=== PATIENT | female | born 1955 | race Caucasian/White ===

== ENCOUNTER → 2017-04-26 | Outpatient (CLI) | payer OTHER ==
--- NOTE | 2017-04-26 11:32 | XR ---
EXAMINATION TYPE: XR abdomen 1V DATE OF EXAM: 04/26/2017 CLINICAL DATA: 61-year-old female with follow-up for kidney stones, [facility] COMPARISON: None FINDINGS: Supine imaging limited for assessment of free intraperitoneal air. Mild to moderate scattered stool. Nonobstructive bowel gas pattern. A couple calcifications are present in the left mid abdomen measuring 9 mm and 7 mm. Cholecystectomy clips. Calcification in the left hemipelvis likely phlebolith. IMPRESSION: 2 left-sided renal calculi measuring 9 and 7 mm.
== END ==
LOC: RADXRYALE 10:20
PROVIDERS: ATTEND Urology
DX: N20.0 Calculus of kidney (principal)
CPT/HCPCS: 74000

== ENCOUNTER → 2017-08-31 | Outpatient (CLI) | payer OTHER ==
--- NOTE | 2017-08-31 14:55 | XR ---
EXAMINATION TYPE: XR abdomen 1V DATE OF EXAM: 08/31/2017 HISTORY: Pain, history of lithotripsy Comparison: 04/26/2017 Single KUB is submitted for interpretation. Findings: Right renal calculi: None Visualized. Right ureteral calculi: None Visualized. Left renal calculi: Recently noted calculi lower pole left kidney persist although appear to be smal ler in size. The largest calculus measures 5.5 cm with multiple fragments are noted adjacent to this calculus not smaller in size from prior examination. Left ureteral calculi: None Visualized. Pelvic calcifications: Pelvic phleboliths noted. Bowel gas pattern is unremarkable. No free air. No mass effects. IMPRESSION: 1. Recently noted calculi lower pole left kidney persist although appear to be smaller in size.
== END | disposition home or self-care (01) ==
LOC: RADXRYALE 11:29
PROVIDERS: ATTEND Urology
DX: N20.0 Calculus of kidney (principal)
CPT/HCPCS: 74018

== ENCOUNTER → 2018-04-12 | Outpatient (CLI) | payer OTHER ==
[2018-04-12 11:09] LABS: Calcium 10.1 mg/dL (8.4-10.2); Carbon Dioxide 23 mmol/L (22-30); Chloride 102 mmol/L (98-107); Phosphorus 3.7 mg/dL (2.5-4.5); Uric Acid 5.1 mg/dL (3.7-7.4)
== END | disposition home or self-care (01) ==
LOC: LABWHC1 10:26
PROVIDERS: ATTEND Urology
DX: N20.0 Calculus of kidney (principal)
CPT/HCPCS: 36415; 82310; 82374; 82435; 82565; 83970; 84100; 84550

== ENCOUNTER → 2018-04-14 | Outpatient (CLI) | payer OTHER ==
[2018-04-14 13:08] LABS: Calcium 10.6 mg/dL (8.4-10.2); Carbon Dioxide 23 mmol/L (22-30); Chloride 101 mmol/L (98-107); Phosphorus 4.8 mg/dL (2.5-4.5); Uric Acid 5.7 mg/dL (3.7-7.4)
[2018-04-14 16:51] LABS: Calcium 24 Hour,Urine 464.1 mg/24 hr
[2018-04-14 16:52] LABS: Creatinine 24 Hour,Urine 1622.4 mg/24hr (800.0-1800.0)
== END | disposition home or self-care (01) ==
LOC: LABWHC1 11:35
PROVIDERS: ATTEND Urology
DX: N20.0 Calculus of kidney (principal)
CPT/HCPCS: 36415; 81003; 81050; 82310; 82340; 82374; 82435; 82565; 82570; 83970; 84100; 84300; 84550; 84560

== ENCOUNTER → 2018-04-25 | Outpatient (CLI) | payer OTHER ==
--- NOTE | 2018-04-25 11:27 | XR ---
EXAMINATION TYPE: XR abdomen 1V DATE OF EXAM: 04/25/2018 COMPARISON: NONE HISTORY: Pain TECHNIQUE: Single supine KUB image of the abdomen is obtained FINDINGS: Small bowel demonstrates no evidence for dilatation or air fluid levels. Gas and fecal material is seen in non-distended colon. No convincing evidence for pneumoperitoneum. There is evidence of left-sided nephrolithiasis with 2 calculi seen lower pole of the left kidney zully suring 5.6 mm and 4.7 mm respectively. Suspect additional upper pole left renal calculi although over lying bowel content limits evaluation. Previously noted right-sided renal calculus is not redemonstra luis with certainty at this time. The lung bases are clear. The osseous structures are intact. IMPRESSION: 1. Nephrolithiasis as discussed.
== END | disposition home or self-care (01) ==
LOC: RADXRYALE 11:08
PROVIDERS: ATTEND Internal Medicine
DX: N20.0 Calculus of kidney (principal)
CPT/HCPCS: 74018

== ENCOUNTER → 2018-07-26 | Outpatient (CLI) | payer OTHER ==
[2018-07-26 16:15] LABS: Calcium 9.8 mg/dL (8.7-10.3); Phosphorus 3.7 mg/dL (2.4-5.1); Uric Acid 4.9 mg/dL (2.9-7.7)
== END | disposition home or self-care (01) ==
LOC: LABWHC1 09:36
PROVIDERS: ATTEND Urology
DX: N20.0 Calculus of kidney (principal)
CPT/HCPCS: 36415; 82310; 82374; 82435; 82565; 83970; 84100; 84550

== ENCOUNTER → 2018-07-28 | Outpatient (CLI) | payer OTHER ==
[2018-07-28 16:59] LABS: Calcium 9.9 mg/dL (8.7-10.3); Carbon Dioxide 21.2 mmol/L (21.6-31.8); Phosphorus 4.3 mg/dL (2.4-5.1); Uric Acid 5.4 mg/dL (2.9-7.7)
== END | disposition home or self-care (01) ==
LOC: LABWHC1 09:23
PROVIDERS: ATTEND Urology
DX: N20.0 Calculus of kidney (principal)
CPT/HCPCS: 36415; 82310; 82374; 82435; 82565; 83970; 84100; 84550

== ENCOUNTER → 2018-12-21 | Outpatient (CLI) | payer OTHER ==
--- NOTE | 2018-12-21 11:56 | XR ---
EXAMINATION TYPE: XR KUB DATE OF EXAM: 12/21/2018 11:18 AM CLINICAL HISTORY: Nephrolithiasis. TECHNIQUE: Single supine KUB image of the abdomen is obtained. COMPARISON: 11/15/2013 FINDINGS: In addition to the previously seen 7 mm calculus there is an adjacent 5 mm calculus overlyi ng the left lower pole. The previously measured 7 mm right renal calculus is not clearly visualized o n today's exam of overlying bowel gas slightly obscures the right kidney. No new calculi along the co urses of the ureters. Small phleboliths are seen within the left pelvis. Mild degenerative changes of the lumbosacral junction. No dilated bowel. Cholecystectomy clips are seen. Lung bases are well aera luis. IMPRESSION: Persistent 7 mm left lower pole renal calculus and additional new 5 mm left lower pole renal calculus . The previously seen right renal calculus may have passed in the interim or may be obscured by overl shaheen bowel.
== END ==
LOC: RADXRYALE 11:02
PROVIDERS: ATTEND Urology
DX: N20.0 Calculus of kidney (principal)
CPT/HCPCS: 74018

== ENCOUNTER → 2019-05-16 | Outpatient (CLI) | payer OTHER ==
[2019-05-16 19:41] LABS: African American GFR (CKD) 90.9 (60.0-200.0)
[2019-05-16 19:58] LABS: Folate, Serum >24.0 ng/mL
== END ==
LOC: LABWHC1 11:06
PROVIDERS: ATTEND Psychiatry & Neurology Neurology
DX: R25.1 Tremor, unspecified (principal)
CPT/HCPCS: 36415; 82565; 82607; 82746; 84520

== ENCOUNTER → 2019-05-22 | Outpatient (CLI) | payer OTHER ==
--- NOTE | 2019-05-22 11:19 | MR ---
EXAMINATION TYPE: MR brain wo/w con DATE OF EXAM: 05/22/2019 COMPARISON: None HISTORY: Malignant neoplasm of the brain TECHNIQUE: Multiplanar, multisequence images of the brain and brainstem is performed without and with IV contras t, utilizing 12 mL intravenous Gadavist . FINDINGS: Diffusion weighted images demonstrate no evidence of a recent infarct or other diffusion ab normality. The ventricular system and cisternal spaces are normal in size and appearance. The brain volume is age appropriate. Midline structures demonstrate normal morphology. The craniocervical junction appears within normal limits. Post contrast images demonstrate a 5 mm extra-axial area of enhancement along the superior r ight parietal lobe parasagittally to the right. . The dural venous sinuses appear patent. Changes of mild chronic sinusitis. No orbital flattening. There are a few scattered areas of focal abnormal signal the white matter estimated 5. All measure le ss than 5 mm. IMPRESSION: 1. There is a 5 mm extra-axial enhancing mass superior to the right parietal lobe. This results in ve ry minimal mass effect upon the adjacent cortex. Differential diagnosis would include a meningioma. N o prior studies are available to assess whether the lesion is changed in size. Small metastatic depos it is not entirely excluded. Recommend follow-up 3-6 month study to assess for stability in size. 2. Minimal nonspecific white matter changes most typical of remote microvascular ischemia.
== END ==
LOC: RADMRIMAIN 09:31
PROVIDERS: ATTEND Psychiatry & Neurology Neurology
DX: C71.9 Malignant neoplasm of brain, unspecified (principal)
CPT/HCPCS: 70553; A9585

== ENCOUNTER → 2019-06-30 | Outpatient (CLI) | payer OTHER ==
--- NOTE | 2019-06-30 13:19 | XR ---
EXAMINATION TYPE: XR KUB DATE OF EXAM: 06/30/2019 HISTORY: Pain Comparison: 12/21/2018 Single KUB is submitted for interpretation. Findings: Right renal calculi: None Visualized. Right ureteral calculi: None Visualized. Left renal calculi: Left renal calculi noted measuring 5.1 and 6.7 mm respectively versus 5.2 and 6. 9 mm previously. Left ureteral calculi: None Visualized. Pelvic calcifications: None Visualized. Bowel gas pattern is unremarkable. No free air. No mass effects. IMPRESSION: 1. Essentially stable left-sided renal calculi.
== END | disposition home or self-care (01) ==
LOC: RADXRYALE 10:37
PROVIDERS: ATTEND Urology
DX: N20.0 Calculus of kidney (principal)
CPT/HCPCS: 74018

== ENCOUNTER → 2020-01-08 | Outpatient (CLI) | payer OTHER ==
--- NOTE | 2020-01-08 09:52 | XR ---
EXAMINATION TYPE: XR KUB DATE OF EXAM: 01/08/2020 Comparison: 06/30/2019 Clinical History: 64-year-old female N200 KIDNEY STONE Findings: Left-sided renal calculus measures 1.5 x 0.9 cm. Cholecystectomy clips. Nonobstructive bowel gas kayli christiana. Moderate stool burden. Impression: Redemonstrated left-sided renal calculus measuring 1.5 x 0.9 cm. Moderate stool burden.
== END | disposition home or self-care (01) ==
LOC: RADXRYALE 08:53
PROVIDERS: ATTEND Urology
DX: N20.0 Calculus of kidney (principal)
CPT/HCPCS: 74018

== ENCOUNTER → 2020-04-01 | Outpatient (CLI) | payer OTHER ==
--- NOTE | 2020-04-01 22:52 | MR ---
EXAMINATION TYPE: MR brain wo/w con DATE OF EXAM: 04/01/2020 COMPARISON: 05/22/2019 HISTORY: Meningioma, previous abnormal. CONTRAST: Performed utilizing 12 mL intravenous Gadavist gadolinium contrast. TECHNIQUE: Multiplanar, multiecho imaging on a 3.0 Karla magnet is performed through the brain. Stud y is performed within 24 hours of arrival to the hospital. The craniovertebral junction is normal. The pituitary is normal. There is a small enhancing area along the superior vertex. This is extra-axial and measures 0.9-0.9 c m. Series 603 image 17. This was present previously and can be compatible with the small meningioma. This is stable in size. Monitoring is recommended. Follow-up exam in 3-6 months is recommended. Diffusion-weighted imaging is performed. No abnormal hyperintensity is present to suggest an acute i ntracranial infarct or acute ischemic change. There are some scattered subcortical white matter changes predominantly within the right centrum semi ovale frontal and parietal lobes. Largest on right measures 0.5 cm. Series 501 image 20. White matter changes appear stable over the interval. Ventricles and sulci are appropriate for the patient age. There is some increased signal on T2-weighted sequences through the optic nerve region. Clinical noe elation for papilledema is recommended. IMPRESSIONS: 1. Stable enhancing meningioma right medial vertex. 2. Stable subcortical punctate white matter changes, likely on the basis of chronic hypervascular isc hemic change. 3. Fluid surrounding the optic nerves. Correlate for papilledema.
== END | disposition home or self-care (01) ==
LOC: RADMRIMAIN 09:24
PROVIDERS: ATTEND Psychiatry & Neurology Neurology
DX: D32.0 Benign neoplasm of cerebral meninges (principal)
CPT/HCPCS: 70553; A9585

== ENCOUNTER → 2020-12-24 | Outpatient (CLI) | payer OTHER ==
--- NOTE | 2020-12-24 14:02 | XR ---
EXAMINATION TYPE: XR KUB DATE OF EXAM: 12/24/2020 8:50 AM CLINICAL HISTORY: Kidney stone TECHNIQUE: Single supine KUB image of the abdomen is obtained. COMPARISON: 01/08/2020. FINDINGS: Cholecystectomy clips. Scattered stool in gas obscure visualization of the renal contours, right greater than left. There is a left lower pole renal calculus measuring 1.3 cm, similar to prior exam. Probable left-sided pelvic phleboliths. Stool and gas are seen to the level of the rectum. No definite evidence of ureteral calculi. Degenerative changes of the lumbar spine and hips. IMPRESSION: 1. Stable left lower pole renal calculus measuring 1.3 cm, similar to prior exam. 2. Cholecystectomy. 3. Large amount of stool and gas obscures visualization of the right kidney and pelvis.
== END | disposition home or self-care (01) ==
LOC: RADXRYALE 08:41
PROVIDERS: ATTEND Urology
DX: N20.0 Calculus of kidney (principal); K56.41 Fecal impaction; Z90.49 Acquired absence of other specified parts of digestive tract
CPT/HCPCS: 74018

== ENCOUNTER → 2021-04-06 | Outpatient (CLI) | payer OTHER, MEDICARE ==
--- NOTE | 2021-04-06 16:02 | MR ---
EXAMINATION TYPE: MR brain wo/w con DATE OF EXAM: 04/06/2021 COMPARISON: 04/01/2020 HISTORY: Menegioma, follow up CONTRAST: Standard multiplanar, multisequence MRI departmental protocol utilizing 12ml mL intravenous Gadavist gadolinium contrast. There is cerebral cortical atrophy. There is no mass effect nor midline shift. There is no sign of in tracranial hemorrhage. There are a few white matter high signal foci in the right cerebral hemisphere that measure up to 6 mm. Total number is approximately 5. These are seen in the frontal temporal and parietal lobes. The brainstem is intact. Cerebellum is intact. Sella turcica is intact. Corpus callo sum is intact. There is 9 mm rounded enhancing focus at the right posterior frontal lobe convexity ne ar the midline. This is extra-axial and consistent with a small meningioma. The size is not changed c ompared to old exam. The optic chiasm appears normal. Pituitary stalk is in the midline. There is no evidence of orbital mass. IMPRESSION: Extra-axial enhancing focus in the right posterior frontal lobe convexity consistent with meningioma and not changed compared to previous exam. Mild atrophy.
== END | disposition home or self-care (01) ==
LOC: RADMRIMAIN 08:53
PROVIDERS: ATTEND Psychiatry & Neurology Neurology
DX: G31.9 Degenerative disease of nervous system, unspecified (principal)
CPT/HCPCS: 70553; A9585

== ENCOUNTER → 2021-09-05 | Outpatient (CLI) | payer OTHER ==
--- NOTE | 2021-09-07 17:40 | CT ---
EXAMINATION TYPE: CT abdomen pelvis wo con DATE OF EXAM: 09/05/2021 COMPARISON: 12/19/2013 HISTORY: 66-year-old female N2 0.0, bilateral renal stones CT DLP: 1126 mGycm. Automated exposure control for dose reduction was used. TECHNIQUE: Contiguous axial scanning of the abdomen and pelvis without IV contrast. Coronal and sagit zak reconstructions performed. FINDINGS: Heart normal size without pericardial effusion. Small to moderate-sized hiatal hernia. Some minimal s trandy subpleural atelectasis. No pleural effusion. Liver mildly enlarged at 18.9 cm versus 20.5 cm, previously. Cholecystectomy clips. Mild diffuse thickening of the adrenal glands without discrete nodularity. Spleen with splenule anterior to the tail of the pancreas redemonstrated. Noncontrast appearance of t he pancreas shows no gross abnormality. 4 nonobstructive right renal calculi measuring up to 4 mm. 5 nonobstructive left renal calculi, large st measuring 9 mm. Mild bilateral perinephric edema could represent senescent change of chronic kidne y disease. No hydronephrosis. No dilated small bowel, free fluid, or free air. No mesenteric or retroperitoneal lymphadenopathy. Mild stool burden. Generalized colonic diverticulosis, greatest in the sigmoid colon. No pericolic in flammatory change. Bladder partially distended. Some possible soft tissue thickening along the anterior aspect of the bl adder, axial image 133 and sagittal image 53. Small pelvic phleboliths. Uterus surgically absent. Questionable visualization of the right ovary. Le ft ovary not clearly delineated from adjacent bowel loops. No abnormal fluid collection in the pelvis or pelvic lymphadenopathy seen. Bones: Degenerative changes pubic symphysis. [id number] degenerative change at both hips. Hyper trophic facet arthropathy mid to lower lumbar spine with grade 1 anterolisthesis L4-L5. Grade 1 retro listhesis L1-L2. IMPRESSION: 1. Bilateral nephrolithiasis measuring up to 4 mm on the right and 9 mm on the left. No hydronephros is. 2. Some possible soft tissue thickening along the anterior wall of the bladder (axial image 133 and sagittal image 53). Findings may be artifact from bony pelvic structures. A urothelial lesion is not excluded at this time. Correlate with urinalysis and urine cytology. Direct visualization as clinical ly indicated. 3. Colonic diverticulosis greatest in the sigmoid colon. No evidence for acute diverticulitis. 4. Small to moderate-sized hiatal hernia.
== END | disposition home or self-care (01) ==
LOC: RADCTMAIN 13:26
PROVIDERS: ATTEND Urology
DX: N20.0 Calculus of kidney (principal); K57.30 Diverticulosis of large intestine without perforation or abscess without bleeding; K44.9 Diaphragmatic hernia without obstruction or gangrene
CPT/HCPCS: 74176

== ENCOUNTER → 2021-09-13 | Outpatient (CLI) | payer OTHER ==
[2021-09-14 13:09] LABS: Coronavirus SARS CoV-2 Not Detected (Not Detected)
== END | disposition home or self-care (01) ==
LOC: LABWHC1 08:16
PROVIDERS: ATTEND Urology
DX: Z20.822 Contact with and (suspected) exposure to COVID-19 (principal)
CPT/HCPCS: U0003; C9803; U0005

== ENCOUNTER → 2021-10-23 | Outpatient (CLI) | payer OTHER ==
--- NOTE | 2021-10-23 09:49 | XR ---
EXAMINATION TYPE: XR KUB DATE OF EXAM: 10/23/2021 HISTORY: S/P LT ESWL Comparison: 12/24/2020 Single KUB is submitted for interpretation. Findings: Right renal calculi: None Visualized. Right ureteral calculi: None Visualized. Left renal calculi: Overlying bowel content limits evaluation of the left kidney. Previously noted c alculus lower pole left kidney is poorly visualized. No definite calculi along the course of the left ureter. Left ureteral calculi: None Visualized. Pelvic calcifications: Stable phleboliths. Bowel gas pattern is unremarkable. No free air. No mass effects. IMPRESSION: 1. Overlying bowel content limits evaluation of the left kidney. Previously noted calculus lower pole left kidney is poorly visualized. No definite calculi along the course of the left ureter.
== END | disposition home or self-care (01) ==
LOC: RADXRYALE 09:19
PROVIDERS: ATTEND Urology
DX: N20.0 Calculus of kidney (principal); Z87.442 Personal history of urinary calculi
CPT/HCPCS: 74018

== ENCOUNTER 2021-11-17 16:46 | Emergency (ER) | payer OTHER, MEDICARE ==
[2021-11-17 17:11] VITALS: BP 168/75; PULSE 93; RESP 16; TEMP 98.2
[2021-11-17] MEDS ORDERED: DIPH,PERTUS(ACELL)TETVAC-LF 0.5 ML VIAL IM ONE (17:20)
--- NOTE | 2021-11-17 17:22 | ED ---
General Adult HPI - General Chief complaint: Fall Stated complaint: Fall, Right arm injury Time Seen by Provider: 11/17/21 17:13 Source: patient, RN notes reviewed Mode of arrival: ambulatory Limitations: no limitations - History of Present Illness Initial comments: Patient is a pleasant 66-year-old female presenting to the emergency Department with right arm pain following a fall. Incident occurred earlier today. Patient was not and attention and tripped over a parking block. Patient caught herself with her right outstretched hand. Patient has discomfort near the right elbow. Patient did have some abrasions to the right hand. Unclear last tetanus immunization. No head injury or loss of consciousness. No neck or back pain. No chest pain or dyspnea. No abdominal pain. No other area of injury or concern. Patient refuses any pain medication. - Related Data Home Medications Medication Instructions Recorded Confirmed Aspirin EC [Ecotrin Low Dose] 81 mg PO DAILY 11/17/21 11/17/21 Atorvastatin [Lipitor] 80 mg PO HS 11/17/21 11/17/21 Cholecalciferol [Vitamin D3 (25 25 mcg PO DAILY 11/17/21 11/17/21 Mcg = 1000 Iu)] Empagliflozin [Jardiance] 25 mg PO DAILY 11/17/21 11/17/21 Isosorbide Mononitrate ER [Imdur] 30 mg PO DAILY 11/17/21 11/17/21 Meclizine [Antivert] 25 mg PO DAILY PRN 11/17/21 11/17/21 Metoprolol Tartrate [Lopressor] 25 mg PO BID 11/17/21 11/17/21 Naproxen Sodium [Aleve] 440 mg PO BID 11/17/21 11/17/21 Potassium Citrate [Urocit-K] 10 meq PO BID 11/17/21 11/17/21 hydroCHLOROthiazide 50 mg PO DAILY 11/17/21 11/17/21 lisinopriL [Zestril] 20 mg PO BID 11/17/21 11/17/21 sitaGLIPtin PHOS/metFORMIN HCL 1 tab PO BID 11/17/21 11/17/21 [Janumet 50-1,000 mg Tablet] Allergies Allergy/AdvReac Type Severity Reaction Status Date / Time sulfamethoxazole AdvReac Abdominal Verified 11/17/21 18:41 [From Bactrim] Pain trimethoprim [From Bactrim] AdvReac Abdominal Verified 11/17/21 18:41 Pain Review of Systems ROS Statement: Those systems with pertinent positive or pertinent negative responses have been documented in the HPI. ROS Other: All systems not noted in ROS Statement are negative. Constitutional: Denies: fever Eyes: Denies: eye pain ENT: Denies: ear pain Respiratory: Denies: cough Cardiovascular: Denies: chest pain Endocrine: Denies: fatigue Gastrointestinal: Denies: abdominal pain Genitourinary: Denies: dysuria Musculoskeletal: Reports: as per HPI. Denies: back pain Skin: Denies: lesions Neurological: Denies: weakness Past Medical History Past Medical History: Diabetes Mellitus, Hyperlipidemia, Hypertension History of Any Multi-Drug Resistant Organisms: None Reported Past Surgical History: Cholecystectomy, Hysterectomy Past Psychological History: No Psychological Hx Reported Smoking Status: Never smoker Past Alcohol Use History: None Reported Past Drug Use History: None Reported General Exam Limitations: no limitations General appearance: alert, in no apparent distress Head exam: Present: atraumatic Eye exam: Present: normal appearance Neck exam: Present: normal inspection. Absent: tenderness Respiratory exam: Present: normal lung sounds bilaterally Cardiovascular Exam: Present: regular rate, normal rhythm Expanded Peripheral pulses: 2+: Radial (R) GI/Abdominal exam: Present: soft. Absent: tenderness Extremities exam: Present: tenderness (Tenderness right elbow region. No other area of bony tenderness.) Neurological exam: Present: alert. Absent: motor sensory deficit Psychiatric exam: Present: normal affect, normal mood Skin exam: Present: other (Mild abrasions right proximal palm) Course Vital Signs 11/17/21 17:08 Temperature 98.2 F Pulse Rate 93 Respiratory 16 Rate Blood Pressure 168/75 O2 Sat by Pulse 97 Oximetry Procedures - Orthopedic Splinting/Casting Injury #1 Side: right Upper Extremity Injury Location: long arm Upper Extremity Immobilizer: posterior splint Medical Decision Making - Medical Decision Making Patient reevaluated and updated. Patient states she does see Dr. Harden and will follow-up with him. - Radiology Data Radiology results: image reviewed (X-ray right elbow shows no fracture. I do have some concern for a positive sail sign) Disposition Clinical Impression: Fall, Arm injury Disposition: HOME SELF-CARE Condition: Stable Instructions (If sedation given, give patient instructions): Arm Fracture in Adults (ED), Arm Pain (ED) Additional Instructions: Ice to affected area. Please follow-up with your orthopedic doctor in the next couple days for recheck. Use sling as needed. Return for increased pain, swelling, worsening or changing symptoms or other concerns. Is patient prescribed a controlled substance at d/c from ED?: No Referrals: Maral Edwards MD [Primary Care Provider] - 1-2 days Gaurav Deleon MD [STAFF PHYSICIAN] - 1-2 days Endy Hart MD [Medical Doctor] - 1-2 days Time of Disposition: 18:58
--- NOTE | 2021-11-17 18:19 | XR ---
EXAMINATION TYPE: XR elbow complete RT DATE OF EXAM: 11/17/2021 COMPARISON: NONE HISTORY: Elbow pain TECHNIQUE: 3 views FINDINGS: There is some spurring on the olecranon process of the ulna. I see no fracture nor dislocat ion. Elbow joint spaces are normal. IMPRESSION: Negative right elbow exam. No fracture.
== END 2021-11-17 19:05 | disposition home or self-care (01) ==
LOC: EC 16:46
DX: S69.91XA Unspecified injury of right wrist, hand and finger(s), initial encounter (principal); E11.9 Type 2 diabetes mellitus without complications; I10 Essential (primary) hypertension; Z88.2 Allergy status to sulfonamides; Z88.8 Allergy status to other drugs, medicaments and biological substances; W19.XXXA Unspecified fall, initial encounter
CPT/HCPCS: 29105; 90471; 90715; 99284

== ENCOUNTER → 2022-01-07 | Outpatient (CLI) | payer OTHER, MEDICARE ==
--- NOTE | 2022-01-07 15:05 | XR ---
EXAMINATION TYPE: XR ribs bilat w pa chest xray DATE OF EXAM: 01/07/2022 COMPARISON: NONE HISTORY: Pain TECHNIQUE: 5 views of the right 5 views of the left ribs are submitted FINDINGS: AC joint arthropathy incidentally noted. Mild diffuse osteopenia. Chronic appearing deformi ty of the anterior lateral margin of the right fourth rib. Surgical clips in the gallbladder fossa. S urgical clips overlying the left chest. Lungs are clear. No pleural effusion or pneumothorax. Hypertr ophic and degenerative changes spine. No acute displaced rib fracture. Vascular calcifications in the abdomen. IMPRESSION: 1. No acute displaced rib fracture. If symptoms persist consider CT scan of the chest.
== END | disposition home or self-care (01) ==
LOC: RADXRYALE 14:41
PROVIDERS: ATTEND Internal Medicine
DX: R07.81 Pleurodynia (principal)
CPT/HCPCS: 71111

== ENCOUNTER → 2022-06-29 | Outpatient (CLI) | payer OTHER ==
--- NOTE | 2022-06-29 12:39 | BD ---
EXAMINATION TYPE: Axial Bone Density DATE OF EXAM: 06/29/2022 COMPARISON: NONE CLINICAL HISTORY: 67 years year old Female. ICD-10 CODE: N95.8 OTHER SPECIFIED MENOPAUSAL AND PERIME NOPAUSAL Height: 5 FT 5 1/2 IN Weight: 258 FRAX RISK QUESTIONS: Alcohol (3 or more units per day): NO Family History (Parent hip fracture): NO Glucocorticoids (More than 3mos): NO (Ex: prednisone, prednisolone, methylprednisolone, dexamethasone, and hydrocortisone). History of Fracture in Adulthood: YES Secondary Osteoporosis: 1. Type 1 Diabetes: NO 2. Hyperthyroidism: NO 3. Menopause before 45: NO 4. Malnutrition: NO 5. Chronic liver disease: NO Rheumatoid Arthritis: NO Current Tobacco Use: NO RISK FACTORS HISTORY OF: Surgery to Spine/Hip(right/left)/Wrist (right/left): NO Family History of Osteoporosis: YES Active: SOMEWHAT Diet low in dairy products/other sources of calcium: NO Postmenopausal woman: YES Take estrogen and/or progesterone medications: NO Lost more than 2 inches in height since high school: YES Frequent falls: NO Poor Health: FAIR Hyperparathyroidism: NO Adrenal Insufficiency: STONES MEDICATIONS: Additional Medications: JARDIANCE,METFORMIN,RYBELSUS, METOPROLOL, LISINOPRIL, ATORVASTATAN, ISOSORBID E MONONITRATE, HYDROCHLORATE, POTASSIUM, MECLIZINE, OMEPRAZOLE, MULTI VIT Additional History: EXAM MEASUREMENTS: Bone mineral densitometry was performed using the [employer] System. Bone mineral density as measured about the Lumbar spine is: ----- L1-L4(G/cm2 1.433): T Score Values are as follows: ----- L1: 1.5 ----- L2: 2.6 ----- L3: 1.6 ----- L4: 2.6 ----- L1-L4: 2.1 BASELINE Bone mineral density about the R hip (g/cm2): 1.023 Bone mineral density about the L hip (g/cm2): 1.137 T Score values are as follows: -----R Neck: -0.1 -----L Neck: 0.7 -----R Total: -0.2 -----L Total: 0.1 BASELINE FRAX%s: The graph provided illustrates a 4.4 % chance for a major osteoporotic fx and a 0.3 % chance for the hips probability for fx in 10 years time. IMPRESSION: Normal (Values between +1 and -1 indicate normal bone mass). Consider repeating this study in 5 year s or sooner if there is some new clinical indication. NOTE: T-SCORE=SD OF THE YOUNG ADULT MEAN.
== END | disposition home or self-care (01) ==
LOC: RADBDWWP 09:11
PROVIDERS: ATTEND Internal Medicine
DX: N95.8 Other specified menopausal and perimenopausal disorders (principal)
CPT/HCPCS: 77080

== ENCOUNTER → 2023-01-18 | Outpatient (CLI) | payer OTHER, MEDICARE ==
--- NOTE | 2023-01-19 11:39 | MM ---
Reason for Exam: Screening (asymptomatic). Last screening mammogram was performed 12 month(s) ago. Patient History: Menarche at age 11. First Full-Term at age 27. Hysterectomy at age 45. Postmenopausal. Breast cancer, left. 2009, Lumpectomy on the Left side. 2009, Radiation Therapy on the left side. Prior Study Comparison: 10/11/2019 Bilateral Diagnostic Mammogram, [facility]. 11/07/2020 Bilateral Diagnostic Mammogram, [facility]. 01/07/2022 Bilateral Diagnostic Mammogram, [facility]. Tissue Density: The breast tissue is extremely dense which could obscure a lesion on mammography. Findings: Analyzed By CAD. No new suspicious mass within either breast. Posttreatment changes of the left breast. Benign calcifications within both breasts. New linear regional calcification within the upper outer left breast which may represent secretory calcifications. Overall Assessment: Incomplete: need additional imaging evaluation, BI-RAD 0 Management: Diagnostic Mammogram of the left breast. A clinical breast exam by your physician is recommended on an annual basis and results should be correlated with mammographic findings. [facility] will attempt to contact patient to return for supplemental views and ultrasound if indicated. Electronically signed and approved by: Kan Alves D.O.
== END | disposition home or self-care (01) ==
LOC: RADMAMWWP 08:10
PROVIDERS: ATTEND Internal Medicine
DX: Z12.31 Encounter for screening mammogram for malignant neoplasm of breast (principal); Z78.0 Asymptomatic menopausal state
CPT/HCPCS: 77063; 77067

== ENCOUNTER → 2023-01-21 | Outpatient (CLI) | payer OTHER ==
--- NOTE | 2023-01-21 09:21 | MM ---
Reason for Exam: Additional evaluation requested from abnormal screening. Last screening mammogram was performed less than 1 month ago. Patient History: Menarche at age 11. First Full-Term at age 27. Hysterectomy at age 45. Postmenopausal. Breast cancer, left, age 55. 2010, Lumpectomy on the Left side. 2009, Radiation Therapy on the left side. Prior Study Comparison: 10/11/2019 Bilateral Diagnostic Mammogram, [facility]. 11/07/2020 Bilateral Diagnostic Mammogram, [facility]. 01/07/2022 Bilateral Diagnostic Mammogram, [facility]. 01/18/2023 Bilateral MG 3D screening mammo w/cad, [facility]. Tissue Density: Left: The breast tissue is extremely dense which could obscure a lesion on mammography. Findings: Analyzed By CAD. There is a new large area of indeterminate microcalcifications upper outer left breast. Calcifications span approximately 7.5 x 9.1 x 3.4 cm. Stereotactic core biopsy is recommended at multiple sites. Overall Assessment: Suspicious, BI-RAD 4 Management: Stereotactic Core Biopsy of the left breast. . Results were given to the patient verbally at the time of exam. Patient should continue monthly self-breast exams. A clinical breast exam by your physician is recommended on an annual basis. This exam should not preclude additional follow-up of suspicious palpable abnormalities. Note on Cherie scores and lifetime risk: 1. A Cherie score greater than 3% is considered moderate risk. If this is the case, consider specialist referral to assess eligibility for a risk reducing agent. 2. If overall lifetime risk for the development of breast cancer is 20% or higher, the patient may qualify for future screening with alternating mammogram and breast MRI. Electronically signed and approved by: Joe Louise M.D. Radiologis
== END | disposition home or self-care (01) ==
LOC: RADMAMWWP 08:10
PROVIDERS: ATTEND Internal Medicine
DX: R92.8 Other abnormal and inconclusive findings on diagnostic imaging of breast (principal); Z78.0 Asymptomatic menopausal state
CPT/HCPCS: 77061; 77065

== ENCOUNTER → 2023-03-19 | Outpatient (CLI) | payer OTHER ==
[2023-03-19 11:58] VITALS: BP 132/84; PULSE 107; RESP 16; TEMP 98.2
--- NOTE | 2023-03-19 12:24 | P.GSHP ---
History of Present Illness H&P Date: 03/19/23 Chief Complaint: DCIS left breast Pablo is a 67 year old white female seen in consultation for Dr. Edwards regarding a biopsy proven left breast DCIS. She underwent a bilateral mammogram on 01-18-23. This showed a large area 10 by 4 cm in carlos left breast in the [facility] where biopsy was done and + for DCIS, no lesions of concern in the right breast. A MRI done on 02-25-23 confirmed the findings of diffuse nonmass enhancement int eh left bresat without definitive correlation of location with the calcification on mammogram. No lesions of concern noted in the right breast. Patient does not feel any lumps masses or nodules of concern in either breast. Patient has not had any recent trauma or infection in either breast. Of significance is the fact that the patient underwent a left breast lumpectomy in 2009 at [facility]. It was done by DR. Apple. He underwent [address] Todd. She did not have any chemo or hormonal therapy. She was told it was stage 0. She is uncertain as to the size. Caffiene: 1/2 cups coffee/day 1 pepsi/day nicotine: none chocolate:occasional BCP: 3 months hormones: none Family history: sister: from colon cancer father: thyroid cancer Hormonal history: Menarche: 10 , breat fed: no, age at first : 27 menopause: total hysterectomy in her 50's heavy bleeding Surgical history: Total abdominal hysterectomy Cholecystectomy Colonoscopy Left breast lumpectomy and sentinel node biopsy Medical History: daibetic HTN high cholesterol Bilateral knee/ymxr-tf-drck takes a baby aspirin Social history: Nicotine: Negative Alcohol: Negative Drugs:none - Constitutional Constitutional: Reports sweats - EENT Eyes: denies blurred vision, denies pain Ears: deny: decreased hearing, tinnitus Ears, nose, mouth and throat: Denies headache, Denies sore throat - Breasts Breasts: bilateral: as per HPI - Cardiovascular Cardiovascular: Denies chest pain, Denies shortness of breath - Respiratory Respiratory: Denies cough, Denies 7 - Gastrointestinal Gastrointestinal: Denies abdominal pain, Denies diarrhea, Denies nausea, Denies vomiting - Genitourinary (Female) Genitourinary: Reports kidney stones, Denies dysuria, Denies hematuria - Menstruation Menstruation: Reports post hysterectomy - Musculoskeletal Musculoskeletal: Reports as per HPI, Denies myalgias - Integumentary Integumentary: Denies pruritus, Denies rash - Neurological Neurological: Denies numbness, Denies weakness - Psychiatric Psychiatric: Denies anxiety, Denies depression - Endocrine Endocrine: Denies fatigue, Denies weight change - Hematologic/Lymphatic Comment: none - Allergic/Immunologic Allergic/Immunologic: Reports seasonal allergies Past Medical History Past Medical History: Diabetes Mellitus, Hyperlipidemia, Hypertension History of Any Multi-Drug Resistant Organisms: None Reported Past Surgical History: Cholecystectomy, Hysterectomy Past Anesthesia/Blood Transfusion Reactions: No Reported Reaction Past Psychological History: No Psychological Hx Reported Smoking Status: Never smoker Past Alcohol Use History: None Reported Past Drug Use History: None Reported Medications and Allergies Home Medications Medication Instructions Recorded Confirmed Type Aspirin EC [Ecotrin Low Dose] 81 mg PO DAILY 11/17/21 03/19/23 History Atorvastatin [Lipitor] 80 mg PO HS 11/17/21 03/19/23 History Cholecalciferol [Vitamin D3 (25 25 mcg PO DAILY 11/17/21 03/19/23 History Mcg = 1000 Iu)] Empagliflozin [Jardiance] 25 mg PO DAILY 11/17/21 03/19/23 History Isosorbide Mononitrate ER [Imdur] 30 mg PO DAILY 11/17/21 03/19/23 History Meclizine [Antivert] 25 mg PO DAILY PRN 11/17/21 03/19/23 History Metoprolol Tartrate [Lopressor] 25 mg PO BID 11/17/21 03/19/23 History Naproxen Sodium [Aleve] 440 mg PO BID 11/17/21 03/19/23 History Potassium Citrate [Urocit-K] 10 meq PO BID 11/17/21 03/19/23 History hydroCHLOROthiazide 50 mg PO DAILY 11/17/21 03/19/23 History lisinopriL [Zestril] 20 mg PO BID 11/17/21 03/19/23 History sitaGLIPtin PHOS/metFORMIN HCL 1 tab PO BID 11/17/21 03/19/23 History [Janumet 50-1,000 mg Tablet] Semaglutide [Rybelsus] 14 mg PO DAILY 03/19/23 03/19/23 History Allergies Allergy/AdvReac Type Severity Reaction Status Date / Time sulfamethoxazole AdvReac Abdominal Verified 03/19/23 11:51 [From Bactrim] Pain trimethoprim [From Bactrim] AdvReac Abdominal Verified 03/19/23 11:51 Pain Surgical - Exam Vital Signs Temp Pulse Resp BP Pulse Ox 98.2 F 107 H 16 132/84 96 03/19/23 11:53 03/19/23 11:53 03/19/23 11:53 03/19/23 11:53 03/19/23 11:53 - General no distress - Eyes normal ocular movement - ENT no hearing loss - Neck trachea midline - Respiratory normal respiratory effort - Cardiovascular Heart Sounds: normal: S1, S2 - Abdomen Abdomen: soft, non tender, no guarding, no rigid, no rebound - Integumentary normal turgor - Neurologic no disoriented, no combative - Musculoskeletal normal gait - Psychiatric oriented to time, oriented to person, oriented to place, speech is normal, memory intact Breast Exam: BRA: 42C Inspection: Bilateral grade 3 ptosis Ecchymosis and probable hematoma lateral aspect of left breast related to recent biopsy Palpation: Right breast: Positional exam fibrocystic changes no dominant masses or nodules of concern Right axilla: No adenopathy of concern Left breast: Ecchymosis and probable hematoma lateral aspect of the left breast, otherwise no discrete dominant masses or nodules of concern Left axilla: No adenopathy of concern Results Mammogram reviewed in detail with Dr. Louise; area of calcifications spans approximately 10 cm x 4 cm lateral aspect of the left breast, lesions of concern identified in the right breast Assessment and Plan Assessment: Impression: Left breast DCIS approximately 10 x 4 cm on mammogram Patient had a prior left breast DCIS treated with lumpectomy and radiation therapy daibetic HTN high cholesterol Bilateral knee/nalf-kl-omvr takes a baby aspirin Plan: Presentation of case at tumor board We'll discuss treatment options with the patient Cc: Dr. Edwards
== END ==
LOC: WWCWWP 11:45
PROVIDERS: ATTEND Surgery
DX: D05.12 Intraductal carcinoma in situ of left breast (principal); E11.9 Type 2 diabetes mellitus without complications; E78.00 Pure hypercholesterolemia, unspecified; I10 Essential (primary) hypertension; Z79.84 Long term (current) use of oral hypoglycemic drugs; Z88.1 Allergy status to other antibiotic agents; Z88.2 Allergy status to sulfonamides; Z90.12 Acquired absence of left breast and nipple; Z79.82 Long term (current) use of aspirin; Z79.899 Other long term (current) drug therapy

== ENCOUNTER 2023-05-18 10:37 | Day surgery (SDC) | payer OTHER ==
[2023-05-11 12:59] VITALS: BMI 41.2
[~2023-05-18 10:37] MED LIST: DEXAMETHASONE SOD PHOSPHATE 4 MG/ML 1 ML VIAL IV ONE; HEPARIN SODIUM,PORCINE/PF 5,000 UNIT/0.5 ML SYRINGE SQ PRN; HYDROmorphone 0.5 MG/0.5 ML SYRINGE IVP PRN; LIDOCAINE 1% (10MG/ML) FOR IV START INTRADERMA PRN; MIDAZOLAM 2 MG/2 ML VIAL IV PRN; ONDANSETRON 4 MG/2 ML VIAL IVP ONE
--- NOTE | 2023-05-18 11:00 | P.NAPBC ---
NAPBC Queries - NAPBC Queries Was patient's case review presented at [facility] tumor board? If no, comment.: Yes Was patient's pathology reviewed at [facility]? If no, comment.: Yes Was breast conservation surgery offered? If no, comment.: Yes (discussed but extensive disease; genetic testing VUS) Was sentinel node biopsy offered? If no, comment.: Yes Was diagnosis confirmed by percutaneous core biopsy? If no, comment.: Yes Is patient mastectomy patient?: Yes Was a preop referral to reconstructive surgeon offered?: No Clinical Stage: stage 0 left breast cancer
[2023-05-18] MEDS: LACTATED RINGERS 1,000 ML IV SCH (11:44)
--- NOTE | 2023-05-18 11:54 | NM ---
EXAMINATION TYPE: NM sentinel node injection DATE OF EXAM: 05/18/2023 COMPARISON: No direct comparisons CLINICAL INDICATION: Female, 67 years old with history of LEFT BREAST CA; TECHNIQUE AND FINDINGS: The procedure of sentinel lymph node injection was explained to the patient. The benefits, alternatives, and risks were discussed. An informed consent was then obtained. Overlying skin is cleaned with sterile alcohol. Following this, 494 uCi Tc99m Tilmanocept was inject ed in the upper outer aspect of the left nipple intradermally. The patient tolerated the procedure well without any immediate complication. The patient was kept in the radiology department for short stay after the procedure and then taken to surgery for surgical p rocedure what is presumed intraoperative gamma probe will be used for sentinel lymph node detection. IMPRESSION: Left breast radiotracer injection for sentinel node localization as above.
[2023-05-18 11:55] LABS: Glucose,Whole Blood 148 mg/dL (70-110)
[2023-05-18] MEDS ORDERED: LACTATED RINGERS 1,000 ML IV ONE (13:48)
[2023-05-18] MEDS ORDERED: NALOXONE 0.4 MG/ML 1 ML VIAL IV PRN (14:07)
[2023-05-18] MEDS ORDERED: HYDROmorphone 1 MG/ML 1 ML SYRINGE IVP PRN (14:07)
[2023-05-18] MEDS ORDERED: ONDANSETRON 4 MG/2 ML VIAL IVP PRN (14:07)
--- NOTE | 2023-05-18 14:07 | P.OP ---
Date of Procedure: 05/18/23 Preoperative Diagnosis: Left breast ductal carcinoma in situ Postoperative Diagnosis: Same Procedure(s) Performed: Left breast mastectomy, sentinel node biopsy Anesthesia: CARLOS EDUARDO Surgeon: Shayy Kong Estimated Blood Loss (ml): 10 IV fluids (ml): 900 Pathology: other (Breast tissue, axillary tissue) Condition: stable Disposition: same day Indications for Procedure: Left breast extensive ductal carcinoma in situ, prior left breast cancer treated with lumpectomy and radiation many years ago Operative Findings: Radiated breast tissue Description of Procedure: The patient was taken to the operative suite and following induction of anesthesia the neoprobe was used to interrogate the axilla. In the preoperative area. Tracer had been injected in the periareolar region. It was noted the tracer had traveled to the axilla. The left breast was then prepped and draped in a sterile fashion as well as the left axilla. Skin markings were made for superior and inferior skin flaps. The superior skin flap was developed. This was carried down to the pectoralis major muscle. The inferior skin flap was developed and carried down to the pectoralis major muscle. The breast tissue was noted to be firm and patient changes were noted to be present in the tissue. The breast was brought from medial to lateral off the pectoralis muscle being careful to maintain hemostasis using the electrocautery device, Harmonic scalpel, and suture ligating any vessels of concern. The breast was brought down to the area of the axilla. The breast was removed. A superior suture was placed which was short and a long lateral suture was placed. The breast specimen was passed off the operative table. The area of the axilla was approached. Using the neoprobe area of greatest radioactivity was identified. This tissue was grasped using an Allis clamp. Dissection was performed in the radioactive tissue was removed. The 10 second count was 1407. The background count was 41. After assured that hemostasis was attained 2 ADURA drains were placed. One was placed in the axilla and one under the skin flaps. The wound was well irrigated. Surgicel in powder form was placed. The drains were secured using 3-0 nylon suture. The subcutaneous tissue was closed using 3-0 Vicryl suture. This is followed by a running 3-0 Vicryl cutaneous suture. A 4-0 Monocryl subcuticular suture was placed. The patient tolerated the procedure in stable condition. All instrument and sponge counts were correct at the end of the case. Surgical glue was placed on the incision.
[2023-05-18 15:41] LABS: Glucose,Whole Blood 207 mg/dL (70-110)
[2023-05-18] MEDS ORDERED: INSULIN ASPART (NovoLOG) 100 UNIT/ML VIAL SQ ONE (15:45)
[2023-05-18] MEDS: METOCLOPRAMIDE 5 MG/ML 2 ML VIAL IVP SCH (16:47)
[2023-05-18] MEDS ORDERED: HEPARIN SODIUM,PORCINE 5,000 UNIT/ML 1 ML VIAL SQ SCH (20:00)
[2023-05-18] MEDS: HYDROcodone/APAP 5-325MG 1 EACH TAB PO PRN (20:35)
[2023-05-19] MEDS: LACTATED RINGERS 1,000 ML IV SCH (00:10)
[2023-05-19] MEDS: HEPARIN SODIUM,PORCINE 5,000 UNIT/ML 1 ML VIAL SQ SCH ×2 (00:12→12:22)
[2023-05-19] MEDS: SODIUM CHLORIDE 0.9% 1,000 ML IV SCH ×2 (00:18→00:19)
[2023-05-19] MEDS: METOCLOPRAMIDE 5 MG/ML 2 ML VIAL IVP SCH (00:19)
[2023-05-19] MEDS: HYDROcodone/APAP 5-325MG 1 EACH TAB PO PRN ×2 (04:04→12:21)
[2023-05-19 08:00] LABS: Basophils % (A) 0 %; Eosinophils # (A) 0.1 k/uL (0-0.7); Eosinophils % (A) 1 %; HCT 46.5 % (34.0-46.0); HGB 15.8 gm/dL (11.4-16.0); Lymphocytes % (A) 21 %; MCH 31.2 pg (25.0-35.0); MCHC 33.9 g/dL (31.0-37.0); Mean Platelet Volume 8.7; Monocytes # (A) 0.9 k/uL (0-1.0); Monocytes % (A) 10 %; Neutrophils # (A) 6.2 k/uL (1.3-7.7); Neutrophils % (A) 67 %; Platelet Count 204 k/uL (150-450); RBC 5.06 m/uL (3.80-5.40); RDW 13.6 % (11.5-15.5); WBC 9.3 k/uL (3.8-10.6)
[2023-05-19 08:25] VITALS: BP 135/64; PULSE 80; RESP 16; TEMP 98.2
[2023-05-19] MEDS ORDERED: METOPROLOL TARTRATE 25 MG TAB PO SCH (09:30)
[2023-05-19] MEDS ORDERED: MULTIVITAMINS, THERA 1 EACH TAB PO SCH (09:30)
[2023-05-19] MEDS ORDERED: CHOLECALCIFEROL 25 MCG (1000 IU) TABLET PO SCH (09:30)
[2023-05-19] MEDS ORDERED: ISOSORBIDE MONONITRATE ER 30 MG TAB.ER.24H PO SCH (09:30)
[2023-05-19] MEDS ORDERED: PANTOPRAZOLE 40 MG TABLET PO SCH (09:45)
--- NOTE | 2023-05-19 09:52 | P.PN ---
Subjective Progress Note Date: 05/19/23 Principal diagnosis: Postop day #1 left mastectomy with sentinel node biopsy Pablo is a 67-year-old white female postop day #1 left mastectomy with sentinel node biopsy. Postoperatively she is doing well. She is tolerating her diet. She is not complaining of pain. Hemoglobin 15.8. AUDRA drain serous in nature approximately 80 mL dark in color. Objective - Vital Signs Vital signs: Vital Signs Temp 98.2 F 05/19/23 08:00 Pulse 80 05/19/23 08:00 Resp 16 05/19/23 08:00 BP 135/64 05/19/23 08:00 Pulse Ox 98 05/19/23 02:00 FiO2 Intake & Output 05/18/23 05/19/23 05/19/23 18:59 06:59 18:59 Intake Total 1150 Output Total 315 20 Balance 835 -20 Weight 110.5 kg 110.5 kg Intake: IV 1150 Output: Drainage 20 Left Chest 20 Emesis 300 Estimated Blood Loss 15 Other: # Voids 1 - Constitutional General appearance: Present: cooperative - EENT Eyes: Present: EOMI ENT: Present: hearing grossly normal - Neck Neck: Present: normal ROM - Respiratory Respiratory: bilateral: CTA - Cardiovascular Heart sounds: normal: S1, S2 - Integumentary Integumentary Comment(s): Incision clean and dry, no evidence of any seroma or hematoma, no evidence of infection AUDRA drainage serosanguineous on the drain under the mastectomy flaps, no drainage in the axillary drain - Labs CBC & Chem 7: 05/19/23 07:28 Labs: Abnormal Lab Results - Last 24 Hours (Table) 05/18/23 05/18/23 05/19/23 Range/Units 11:34 15:39 07:28 Hct 46.5 H (34.0-46.0) % POC Glucose (mg/dL) 148 H 207 H (70-110) mg/dL Assessment and Plan Assessment: Impression: Patient doing well at this time Plan: Discharge home Teaching drain long term health care to follow Follow-up with Dr. Bueno tomorrow
[2023-05-19] MEDS ORDERED: ATORVASTATIN 80 MG TAB PO SCH (21:00)
[2023-05-20] MEDS ORDERED: DAPAGLIFLOZIN PROPANEDIOL 10 MG TABLET PO SCH (09:00)
[2023-05-20] MEDS ORDERED: NON FORMULARY DRUG (Semaglutide [Rybelsus] 14 MG Tablet) PO SCH (09:00)
--- NOTE | 2023-05-20 16:56 | P.CONS ---
History of Present Illness - Reason for Consult Consult date: 05/19/23 Medical management, status post left breast mastectomy - History of Present Illness - Reason for Consult Consult date: 05/19/23 Medical management status post - History of Present Illness This is a pleasant 68-year-old female who was recently admitted under surgery service is Dr. Bueno Gus underwent left breast mastectomy secondary to intraductal carcinoma in situ of the left breast. Patient reports she follows with Dr. Bueno in the outpatient setting and underwent presurgical clearance with past medical history of breast cancer, diabetes mellitus, hyperlipidemia, hypertension. Patient denies ever smoking denies illicit drug use or alcohol us e. Patient is seen and evaluated postop day 1 doing relatively well and reports pain is managed looking forward to going home. CBC showed a WBC of 9.3 and hemoglobin stable at 15.8, blood sugars were mildly elevated. Patient uses jardiance and metformin for diabetic control. Patient with incentive spirometer at bedside encourage the patient to continue using at least 10 times every hour while awake. Patient is medically stable for discharge today. Review Of Systems: Constitutional: No fever, no chills, no night sweats. No weight change. No weakness, fatigue or lethargy. No daytime sleepiness. EENT: No headache. No blurred vision or double vision, no loss of vision. No loss of Hearing, no ringing in the ears, no dizziness. No nasal drainage or congestion. No epistaxis. No sore throat. Lungs: No shortness of breath, cough, no sputum production. No wheezing. Cardiovascular: No chest pain, no lower extremity edema. No palpitations. No paroxysmal nocturnal dyspnea. No orthopnea. No lightheadedness or dizziness. No syncopal episodes. Abdominal: No abdominal pain. No nausea, vomiting. No diarrhea. No constipation. No bloody or tarry stools.. No loss of appetite. Genitourinary: No dysuria, increased frequency, urgency. No urinary retention. Musculoskeletal: No myalgias. No muscle weakness, no gait dysfunction, no frequent falls. No back pain. No neck pain. Reports some mild left breast chest tenderness postop Integumentary: No wounds, no lesions. No rash or pruritus. No unusual bruising. No change in hair or nails. Neurologic: No aphasia. No facial droop. No change in mentation. No head injury. No headache. No paralysis. No paresthesia. Psychiatric: No depression. No anxiety. No mood swings. Endocrine: No abnormal blood sugars. No weight change. No excessive sweating or thirst. No cold intolerance. PHYSICAL EXAMINATION: GENERAL: The patient is alert and oriented x4, Well developed, well nourished. Morbidly obese HEENT: Pupils are round and equally reacting to light. EOMI. no scleral icterus. No conjunctival pallor. Normocephalic, atraumatic. No pharyngeal erythema. No thyromegaly. CARDIOVASCULAR: S1 and S2 muffled left breast surgical site dressing is dry and intact PULMONARY: diminished breath sounds bilaterally with no wheezing or rhonchi noted. ABDOMEN: soft. Nontender on exam. obese. non-distended, normoactive bowel sounds. No palpable organomegaly. MUSCULOSKELETAL: No joint swelling or deformity. EXTREMITIES: No cyanosis, clubbing, or pedal edema. NEUROLOGICAL: Gross neurological examination did not reveal any focal deficits. SKIN: No rashes. Assessment: Status post left mastectomy with sentinel node biopsy History of breast cancer in 2009 and 2022 Diabetes mellitus, type II, [id number] Hyperlipidemia Hypertension Morbid obesity with a BMI of 40.5 GI prophylaxis DVT prophylaxis Full code Plan: Patient is status post left breast mastectomy with sentinel mode biopsy postop day #1 doing well AUDRA drain with some serous dark drainage noted awaiting education on drain care and Homecare being arranged Incentive spirometer at bedside encourage the patient to continue using at least 10 times every hour while awake Recommend monitoring Accu-Cheks before meals and at bedtime and treat accordingly with sliding scale as needed. Patient is not insulin-dependent at home. Patient did go to primary care provider's office Dr. Edwards for presurgical clearance Encouraged increased activity as tolerated Patient is medically stable for discharge today Thank you kindly for this consultation. We will continue to follow during hospitalization. The impression and plan of care has been dictated by Lianna Wilson, nurse practitioner as directed. Dr. Theresa MD I have performed a history and examination and MDM of this patient, discussed the same with the dictator, and agree with the dictator's assessment and plan as written ,documented as a scribe. Based on total visit time, I have performed more than 50% of the visit. Any additional findings or plans will be noted. Past Medical History Past Medical History: Cancer, Diabetes Mellitus, Hyperlipidemia, Hypertension Additional Past Medical History / Comment(s): left breast cancer History of Any Multi-Drug Resistant Organisms: None Reported Past Surgical History: Breast Surgery, Cholecystectomy, Hysterectomy Additional Past Surgical History / Comment(s): left breast bx, left breast lumpectomy/radiation in 2009 Past Anesthesia/Blood Transfusion Reactions: No Reported Reaction Smoking Status: Never smoker - Past Family History Mother Family Medical History: Coronary Artery Disease (CAD) Sister(s) Family Medical History: Cancer Additional Family Medical History / Comment(s): colon CA Father Family Medical History: Cancer Additional Family Medical History / Comment(s): thyroid CA Medications and Allergies Home Medications Medication Instructions Recorded Confirmed Type Aspirin EC [Ecotrin Low Dose] 81 mg PO DAILY 11/17/21 05/18/23 History Atorvastatin [Lipitor] 80 mg PO HS 11/17/21 05/18/23 History Cholecalciferol [Vitamin D3 (25 25 mcg PO DAILY 11/17/21 05/18/23 History Mcg = 1000 Iu)] Empagliflozin [Jardiance] 25 mg PO DAILY 11/17/21 05/18/23 History Isosorbide Mononitrate ER [Imdur] 30 mg PO DAILY 11/17/21 05/18/23 History Metoprolol Tartrate [Lopressor] 25 mg PO BID 11/17/21 05/18/23 History Naproxen Sodium [Aleve] 440 mg PO DAILY 11/17/21 05/18/23 History hydroCHLOROthiazide 50 mg PO DAILY 11/17/21 05/18/23 History lisinopriL [Zestril] 20 mg PO BID 11/17/21 05/18/23 History Semaglutide [Rybelsus] 14 mg PO DAILY 03/19/23 05/18/23 History Multivitamins, Thera [Multivitamin 1 tab PO DAILY 05/11/23 05/18/23 History (formulary)] Omeprazole 20 mg PO DAILY 05/11/23 05/18/23 History Potassium Citrate [Urocit-K] 10 meq PO BID 05/11/23 05/18/23 History metFORMIN HCL 1,000 mg PO BID 05/11/23 05/18/23 History HYDROcodone/APAP 5-325MG [[place] 5] 1 - 2 each PO Q6HR PRN #20 tab 05/18/23 Rx Allergies Allergy/AdvReac Type Severity Reaction Status Date / Time sulfamethoxazole AdvReac Abdominal Verified 05/18/23 11:56 [From Bactrim] Pain trimethoprim [From Bactrim] AdvReac Abdominal Verified 05/18/23 11:56 Pain Physical Exam Vitals: Vital Signs Temp Pulse Resp BP Pulse Ox 05/19/23 08:00 98.2 F 80 16 135/64 05/19/23 02:00 97.4 F L 90 18 133/69 98 05/18/23 20:00 93 18 134/76 97 05/18/23 17:45 97.5 F L 79 15 111/66 95 05/18/23 17:15 81 14 120/68 95 05/18/23 16:45 78 14 110/61 95 05/18/23 16:30 76 14 123/65 95 05/18/23 16:15 80 15 125/67 95 05/18/23 16:00 78 14 128/81 94 L 05/18/23 15:45 97.5 F L 85 15 134/73 95 05/18/23 15:30 75 16 115/54 96 05/18/23 15:15 81 16 113/54 96 05/18/23 15:00 78 16 119/58 96 05/18/23 14:45 76 16 119/56 97 05/18/23 14:30 74 16 121/56 97 05/18/23 14:20 97 F L 75 14 133/60 97 05/18/23 11:20 97.4 F L 79 18 132/61 95 Intake and Output 05/18/23 05/19/23 05/19/23 22:59 06:59 14:59 Output Total 300 20 Balance -300 -20 Output: Drainage 20 Left Chest 20 Emesis 300 Other: # Voids 1 1 Weight 110.5 kg Results CBC & Chem 7: 05/19/23 07:28 Labs: Abnormal Lab Results - Last 24 Hours (Table) 05/18/23 05/18/23 05/19/23 Range/Units 11:34 15:39 07:28 Hct 46.5 H (34.0-46.0) % POC Glucose (mg/dL) 148 H 207 H (70-110) mg/dL
== END 2023-05-19 13:15 | disposition home health service (06) ==
LOC: OR 10:37 → 4FBP 14:20 → OR 05-19 13:15
PROVIDERS: ATTEND Surgery
DX: D05.12 Intraductal carcinoma in situ of left breast (principal)
CPT/HCPCS: 85025; 38792; 19303; 38525; 38900; A9520; J1644 ×2; J1100; J2765; J0690; J2405; J1170; 88307; 88309; 88341; 88342

== ENCOUNTER → 2023-05-20 | Outpatient (CLI) | payer OTHER ==
--- NOTE | 2023-05-20 08:25 | P.PN ---
Progress Note - Text Progress Note Date: 05/20/23 Pablo is a 68 year old white female status post left breast mastectomy and SNB on 05-18-23. She is seen today to assure the drains are working well. One is not putting anything out. The second under the flaps is putting out 95 cc serosanguineous fluid since discharge. It is working well. Examination: Lungs: Clear Heart: Regular rate and rhythm Incision: Chronic clean and dry no evidence of seroma AUDRA in the axilla is going to be removed it is not putting anything out Impression: Postop day #2 left mastectomy and sentinel node biopsy patient doing well Plan: DC axillary AUDRA drain Patient to keep drain which is under mastectomy flap and will follow-up next week for probable drain removal Follow-up with medical oncology Follow-up radiation oncology CC: Dr. Edwards
== END ==
LOC: WWCWWP 08:01
PROVIDERS: ATTEND Surgery
DX: T81.89XA Other complications of procedures, not elsewhere classified, initial encounter (principal); Z48.03 Encounter for change or removal of drains; Z90.12 Acquired absence of left breast and nipple; Z88.2 Allergy status to sulfonamides; Y69 Unspecified misadventure during surgical and medical care

== ENCOUNTER → 2023-05-27 | Outpatient (CLI) | payer OTHER ==
[2023-05-27 12:42] VITALS: BP 139/85; PULSE 84; RESP 18; TEMP 97.9
--- NOTE | 2023-05-27 13:06 | P.PN ---
Progress Note - Text Progress Note Date: 05/27/23 Pablo is a 68 year old female status post a left mastectomy and SNB on 05-18-23. Breast showed DCIS all margins (-). Four nodes all (-). Closest margin 11mm. one section of DCIS measured 14 mm, and a second second measured 3 mm. She is putting proximally 40 mL per day from the drains. Examination: Lungs: Clear Heart: Regular rate and rhythm Incision: Clean and dry AUDRA site clean and dry Plan: wait to take out the AUDRA drain until next week Medical oncology Follow-up here next week CC: Dr. Edwards
== END ==
LOC: WWCWWP 12:29
PROVIDERS: ATTEND Surgery
DX: C50.412 Malignant neoplasm of upper-outer quadrant of left female breast (principal); Z88.2 Allergy status to sulfonamides; Z88.1 Allergy status to other antibiotic agents

== ENCOUNTER → 2023-06-02 | Outpatient (CLI) | payer OTHER ==
[2023-06-02 15:13] VITALS: BP 128/83; PULSE 86; RESP 18; TEMP 98.2
--- NOTE | 2023-06-02 15:40 | P.PN ---
Progress Note - Text Progress Note Date: 06/02/23 Pablo is a 68 year old female status post a left mastectomy and SNB on 05-18-23. Breast showed DCIS all margins (-). Four nodes all (-). Closest margin 11mm. one section of DCIS measured 14 mm, and a second second measured 3 mm. She is putting proximally 30 mL per day from the drains. Examination: Incision: Clean and dry AUDRA site clean and dry Plan: d/c AUDRA drain Medical oncology; in two weeks will start on an antihormone pill Follow-up 4 months CC: Dr. Edwards
== END ==
LOC: WWCWWP 14:00
PROVIDERS: ATTEND Surgery
DX: Z04.89 Encounter for examination and observation for other specified reasons (principal); Z90.12 Acquired absence of left breast and nipple; Z88.2 Allergy status to sulfonamides; Z88.1 Allergy status to other antibiotic agents

== ENCOUNTER 2023-06-05 08:02 | Emergency (ER) | payer OTHER ==
--- NOTE | 2023-06-05 08:27 | ED ---
Skin/Abscess/FB HPI - General Chief complaint: Skin/Abscess/Foreign Body Stated complaint: Post Op on L Breast Comp Time Seen by Provider: 06/05/23 08:15 Source: patient, family, RN notes reviewed, old records reviewed Mode of arrival: ambulatory Limitations: no limitations - History of Present Illness Initial comments: 68-year-old female presents ambulatory with family complaining of swelling below the incision site after a left mastectomy on May [address] Marroquin. Denies any redness fever tenderness or drainage. States that the drain was removed on Wednesday. Patient just wants to make sure that there is no complication since it is the weekend. History of breast cancer, diabetes, hypertension and hyperlipidemia. MD complaint: other (swelling to mastectomy site after drain removed Wednesday) -: days(s) (2) Location: chest (left breast) Severity scale (1-10): 0 Context: other (left mastectomy 05/18/23 drain removed Wednesday) Associated symptoms: denies other symptoms Treatments Prior to Arrival: none - Related Data Home Medications Medication Instructions Recorded Confirmed Aspirin EC [Ecotrin Low Dose] 81 mg PO DAILY 11/17/21 06/02/23 Atorvastatin [Lipitor] 80 mg PO HS 11/17/21 06/02/23 Cholecalciferol [Vitamin D3 (25 25 mcg PO DAILY 11/17/21 06/02/23 Mcg = 1000 Iu)] Empagliflozin [Jardiance] 25 mg PO DAILY 11/17/21 06/02/23 Isosorbide Mononitrate ER [Imdur] 30 mg PO DAILY 11/17/21 06/02/23 Metoprolol Tartrate [Lopressor] 25 mg PO BID 11/17/21 06/02/23 Naproxen Sodium [Aleve] 440 mg PO DAILY 11/17/21 06/02/23 hydroCHLOROthiazide 50 mg PO DAILY 11/17/21 06/02/23 lisinopriL [Zestril] 20 mg PO BID 11/17/21 06/02/23 Semaglutide [Rybelsus] 14 mg PO DAILY 03/19/23 06/02/23 Multivitamins, Thera [Multivitamin 1 tab PO DAILY 05/11/23 06/02/23 (formulary)] Omeprazole 20 mg PO DAILY 05/11/23 06/02/23 Potassium Citrate [Urocit-K] 10 meq PO BID 05/11/23 06/02/23 metFORMIN HCL 1,000 mg PO BID 05/11/23 06/02/23 Allergies Allergy/AdvReac Type Severity Reaction Status Date / Time sulfamethoxazole AdvReac Abdominal Verified 06/05/23 08:15 [From Bactrim] Pain trimethoprim [From Bactrim] AdvReac Abdominal Verified 06/05/23 08:15 Pain Review of Systems ROS Statement: Those systems with pertinent positive or pertinent negative responses have been documented in the HPI. ROS Other: All systems not noted in ROS Statement are negative. Past Medical History Past Medical History: Cancer, Diabetes Mellitus, Hyperlipidemia, Hypertension History of Any Multi-Drug Resistant Organisms: None Reported Past Surgical History: Breast Surgery, Cholecystectomy, Hysterectomy Past Anesthesia/Blood Transfusion Reactions: No Reported Reaction Past Psychological History: No Psychological Hx Reported Smoking Status: Never smoker Past Alcohol Use History: None Reported Past Drug Use History: None Reported General Exam Limitations: no limitations General appearance: alert, in no apparent distress Head exam: Present: atraumatic, normocephalic Eye exam: Present: normal appearance. Absent: scleral icterus, conjunctival injection, periorbital swelling Respiratory exam: Absent: respiratory distress, accessory muscle use Cardiovascular Exam: Present: regular rate Neurological exam: Present: alert, oriented X3, normal gait Psychiatric exam: Present: normal affect, normal mood Skin exam: Present: warm, dry, normal color, other (surgical incision intact with no erythema or drainage. Dried scale noted to left axilla also without erythema or drainage. There is a soft fluid filled seroma noted to the anterior chest wall below the incision site. Nontender. ). Absent: rash, cyanosis, diaphoretic, erythema, vesicles Course Vital Signs 06/05/23 08:07 Temperature 98.2 F Pulse Rate 75 Respiratory 20 Rate Blood Pressure 139/84 O2 Sat by Pulse 96 Oximetry Medical Decision Making - Medical Decision Making Was pt. sent in by a medical professional or institution (, PA, SCIENCE TEACHER, urgent care, hospital, or senior living...) When possible be specific @ -No Did you speak to anyone other than the patient for history (EMS, parent, family, police, friend...)? What history was obtained from this source @ -No Did you review nursing and triage notes (agree or disagree)? Why? @ -I reviewed and agree with nursing and triage notes Were old charts reviewed (outside hosp., previous admission, EMS record, old EKG, old radiological studies, urgent care reports/EKG's, senior living records)? Report findings @ -Dr. Lopez Weber's notes from Wednesday regarding drain removal. Differential Diagnosis (chest pain, altered mental status, abdominal pain women, abdominal pain men, vaginal bleeding, weakness, fever, dyspnea, syncope, headache, dizziness, GI bleed, back pain, seizure, CVA, palpatations, mental health, musculoskeletal)? @ -Abscess, seroma, cellulitis EKG interpreted by me (3pts min.). @ -n/a X-rays interpreted by me (1pt min.). @ -None done CT interpreted by me (1pt min.). @ -None done U/S interpreted by me (1pt. min.). @ -None done What testing was considered but not performed or refused? (CT, X-rays, U/S, lab s)? Why? @ -None What meds were considered but not given or refused? Why? @ -None Did you discuss the management of the patient with other professionals (professionals i.e. , PA, SCIENCE TEACHER, lab, RT, psych nurse, manager social media, chief medical technologist, teacher, ecological technical officer, pillowcase cutter)? Give summary @ -No Was smoking cessation discussed for >3mins.? @ -No Was critical care preformed (if so, how long)? @ -No Were there social determinants of health that impacted care today? How? (Homelessness, low income, unemployed, alcoholism, drug addiction, transportation, low edu. Level, literacy, decrease access to med. care, intermediate, rehab)? @ -No Was there de-escalation of care discussed even if they declined (Discuss DNR or withdrawal of care, Hospice)? DNR status @ -No What co-morbidities impacted this encounter? (DM, HTN, Smoking, COPD, CAD, Cancer, CVA, ARF, Chemo, Hep., AIDS, mental health diagnosis, sleep apnea, morbid obesity)? @ - History of breast cancer, diabetes, hypertension and hyperlipidemia. Was patient admitted / discharged? Hospital course, mention meds given and route, prescriptions, significant lab abnormalities, going to OR and other pertinent info. @ -Discharged 68-year-old female presents ambulatory with family complaining of swelling below the incision site after a left mastectomy on May [address] Pete Bueno. Denies any redness fever tenderness or drainage. States that the drain was removed on Wednesday. Patient just wants to make sure that there is no complication since it is the weekend. Dr. Bueno's note reviewed from Wednesday stating drain was draining approximately 30 mL before removal. This is likely a post op seroma. Nontender, no erythema, no drainage. Patient was directed to use warm dry compresses 15 minutes every 2 hours to increase absorption. Follow-up with Dr. Bueno next week and return to the emergency room with any new or concerning changes including pain, increased swelling or drainage. She is agreeable to this plan of care. Case discussed with Dr. Henriquez. Undiagnosed new problem with uncertain prognosis? @ -No Drug Therapy requiring intensive monitoring for toxicity (Heparin, Nitro, Insulin, Cardizem)? @ -No Were any procedures done? @ -No Diagnosis/symptom? @ -Postop seroma left chest wall Acute, or Chronic, or Acute on Chronic? @ -Acute Uncomplicated (without systemic symptoms) or Complicated (systemic symptoms)? @ -Uncomplicated Side effects of treatment? @ -No Exacerbation, Progression, or Severe Exacerbation? @ -No Poses a threat to life or bodily function? How? (Chest pain, [place], [place], pneumonia, PE, COPD, DKA, ARF, appy, cholecystitis, CVA, Diverticulitis, Homicidal, Suicidal, threat to staff... and all critical care pts) @ -No Disposition Clinical Impression: Seroma Disposition: HOME SELF-CARE Condition: Good Instructions (If sedation given, give patient instructions): Seroma (DC) Additional Instructions: Warm dry compress for 15 minutes every few hours. Return if signs of infection i ncluding fever, redness or purulent drainage. Follow-up with Dr. Shayy Weber next week. Is patient prescribed a controlled substance at d/c from ED?: No Referrals: Maral Edwards MD [Primary Care Provider] - 1-2 days Shayy Kong MD [STAFF PHYSICIAN] - 1-2 days Time of Disposition: 08:27
[2023-06-05 08:42] VITALS: BP 139/84; PULSE 75; RESP 20; TEMP 98.2
== END 2023-06-05 08:35 | disposition home or self-care (01) ==
LOC: EC 08:02
DX: T14.8XXA Other injury of unspecified body region, initial encounter (principal); I10 Essential (primary) hypertension; E11.9 Type 2 diabetes mellitus without complications; E78.5 Hyperlipidemia, unspecified; Z79.84 Long term (current) use of oral hypoglycemic drugs; Z79.82 Long term (current) use of aspirin; Z79.899 Other long term (current) drug therapy; Z88.2 Allergy status to sulfonamides; Z88.8 Allergy status to other drugs, medicaments and biological substances; Z90.49 Acquired absence of other specified parts of digestive tract
CPT/HCPCS: 99283

== ENCOUNTER → 2023-06-11 | Outpatient (CLI) | payer OTHER ==
--- NOTE | 2023-06-11 11:31 | P.PN ---
Progress Note - Text Progress Note Date: 06/11/23 Patient due for a right breast mammogram in February 2024. She will follow up here in September 2023. To follow up sooner any questions or concerns. Original Note: Progress Note - Text Progress Note Date: 06/02/23 Pablo is a 68 year old female status post a left mastectomy and SNB on 05-18-23. Breast showed DCIS all margins (-). Four nodes all (-). Closest margin 11mm. one section of DCIS measured 14 mm, and a second second measured 3 mm. AUDRA drain was removed on 10240911. She noted some swelling under the left breast flap approximately a week ago. Examination: Incision: Clean and dry Seroma left breast mastectomy site After informed consent aspiration of the seroma in the left chest wall was performed: Area was prepped using alcohol: An 18-gauge needle on a 60 mL syringe was used to aspirate 130 mL of straw- colored fluid. There was complete resolution of the seroma. Plan: Medical oncology; this started on anti-hormonal therapy next week Follow-up 2 weeks to call sooner if any concerns CC: Dr. Edwards Additional CC's: Maral Edwards
[2023-06-11 11:52] VITALS: BP 128/80; PULSE 109; RESP 18; TEMP 97.7
== END ==
LOC: WWCWWP 11:05
PROVIDERS: ATTEND Surgery
DX: Z90.12 Acquired absence of left breast and nipple (principal); N63.21 Unspecified lump in the left breast, upper outer quadrant; Z88.2 Allergy status to sulfonamides; Z88.1 Allergy status to other antibiotic agents

== ENCOUNTER → 2023-06-17 | Outpatient (CLI) | payer OTHER ==
--- NOTE | 2023-06-17 09:53 | P.PN ---
Progress Note - Text Progress Note Date: 06/17/23 Progress Note - Text Progress Note Date: 06-17-23 Pablo is a 68 year old female status post a left mastectomy and SNB on 05-18-23. Breast showed DCIS all margins (-). Four nodes all (-). Closest margin 11mm. one section of DCIS measured 14 mm, and a second second measured 3 mm. AUDRA drain was removed on [id number]. 130 CC straw colored fluid removed on 06-02-23 from seroma site left breast. She saw medical oncology and will start tamoxifen this week. Examination: Incision: Clean and dry Seroma left breast mastectomy site After informed consent aspiration of the seroma in the left chest wall was performed: Area was prepped using alcohol: An 18-gauge needle on a 60 mL syringe was used to aspirate 150 mL of straw- colored fluid. There was complete resolution of the seroma. Plan: The patient will start tamoxifen as per medical oncology Follow-up here next week Follow up sooner any questions or concerns Today for right breast mammogram in February 2024, follow up in September CC: Dr. Edwards
[2023-06-17 10:15] VITALS: BP 133/83; PULSE 78; RESP 17; TEMP 97.8
== END ==
LOC: WWCWWP 09:30
PROVIDERS: ATTEND Surgery
DX: L76.33 Postprocedural seroma of skin and subcutaneous tissue following a dermatologic procedure (principal); Z85.3 Personal history of malignant neoplasm of breast; Z90.12 Acquired absence of left breast and nipple; Z88.2 Allergy status to sulfonamides; Z88.1 Allergy status to other antibiotic agents

== ENCOUNTER → 2023-06-25 | Outpatient (CLI) | payer OTHER ==
--- NOTE | 2023-06-25 12:38 | P.PN ---
Progress Note - Text Progress Note Date: 06/25/23 Pablo is a 68 year old female status post a left mastectomy and SNB on 05-18-23. Breast showed DCIS all margins (-). Four nodes all (-). Closest margin 11mm. one section of DCIS measured 14 mm, and a second measured 3 mm. AUDRA drain was removed on 10240911. 130 CC straw colored fluid removed on 06-02-23 from seroma site left breast. She saw medical oncology and started tamoxifen 06-17-23 seroma aspirated 150 mL of straw-colored fluid Examination: Incision: Clean and dry Seroma left breast mastectomy site After informed consent aspiration of the seroma in the left chest wall was performed: Area was prepped using alcohol: An 18-gauge needle on a 60 mL syringe was used to aspirate 205 mL of straw- colored fluid. There was complete resolution of the seroma. Plan: The patient yuliya take tamoxifen as per medical oncology Follow-up here 2 weeks Follow up sooner any questions or concerns right breast mammogram in February 2024, follow up in September 2023 CC: Dr. Edwards
== END ==
LOC: WWCWWP 11:11
PROVIDERS: ATTEND Surgery
DX: Z90.12 Acquired absence of left breast and nipple (principal); Z88.2 Allergy status to sulfonamides; Z88.1 Allergy status to other antibiotic agents; Z79.84 Long term (current) use of oral hypoglycemic drugs; Z79.899 Other long term (current) drug therapy; Z79.82 Long term (current) use of aspirin

== ENCOUNTER → 2023-07-09 | Outpatient (CLI) | payer OTHER ==
--- NOTE | 2023-07-09 12:12 | P.PN ---
Progress Note - Text Progress Note Date: 07/09/23 Pablo is a 68 year old female status post a left mastectomy and SNB on 05-18-23. Breast showed DCIS all margins (-). Four nodes all (-). Closest margin 11mm. one section of DCIS measured 14 mm, and a second measured 3 mm. AUDRA drain was removed on [id number]. She states she does have a recurrent seroma. She also developed a urinary tract infection was treated by Dr. Rossi. She saw medical oncology and started tamoxifen on 06-19-23 she is complaining of sweats 06-02-23 130 CC straw colored fluid 06-17-23 seroma aspirated 150 mL of straw-colored fluid 06-25-23 seroma aspirated, 205 mL of straw-colored fluid seroma aspirated 280 cc straw colored fluid with complete resolution of the seroma Examination: Incision: Clean and dry Seroma left breast mastectomy site After informed consent aspiration of the seroma in the left chest wall was performed: Area was prepped using alcohol: An 18-gauge needle on a 60 mL syringe was used to aspirate 280 mL of straw- colored fluid. There was complete resolution of the seroma. Plan: The patient will take tamoxifen as per medical oncology Follow-up here 2 weeks Follow up sooner any questions or concerns right breast mammogram in February 2024, follow up in September 2023 CC: Dr. Edwards
[2023-07-09 12:39] VITALS: BP 157/80; PULSE 88; RESP 17; TEMP 97.8
== END ==
LOC: WWCWWP 11:13
PROVIDERS: ATTEND Surgery
DX: Z90.12 Acquired absence of left breast and nipple (principal); Z88.2 Allergy status to sulfonamides; Z88.3 Allergy status to other anti-infective agents; Z79.82 Long term (current) use of aspirin

== ENCOUNTER → 2023-07-21 | Outpatient (CLI) | payer OTHER ==
--- NOTE | 2023-07-21 10:09 | P.PN ---
Progress Note - Text Progress Note Date: 07/21/23 Pablo is a 68 year old female status post a left mastectomy and SNB on 05-18-23. Breast showed DCIS all margins (-). Four nodes all (-). Closest margin 11mm. one section of DCIS measured 14 mm, and a second measured 3 mm. AUDRA drain was removed on [id number]. She states she does have a recurrent seroma. She also developed a urinary tract infection was treated by Dr. Rossi. She states she does have a recurrent seroma today. She saw medical oncology and started tamoxifen on 06-19-23 she is complaining of sweats which have improved. 06-02-23 130 CC straw colored fluid 06-17-23 seroma aspirated 150 mL of straw-colored fluid 06-25-23 seroma aspirated, 205 mL of straw-colored fluid seroma aspirated 280 cc straw colored fluid with complete resolution of the seroma 07-21-23 seroma aspirated 185 mL of blood-tinged fluid with complete resolution of the seroma Examination: Incision: Clean and dry Seroma left breast mastectomy site After informed consent aspiration of the seroma in the left chest wall was performed: Area was prepped using alcohol: An 18-gauge needle on a 60 mL syringe was used to aspirate 280 mL of straw- colored fluid. There was complete resolution of the seroma. 185 mL of fluid were aspirated. Plan: The patient will take tamoxifen as per medical oncology Follow-up here 3 weeks Follow up sooner any questions or concerns right breast mammogram in February 2024, follow up in September 2023 CC: Dr. Edwards Additional CC's: Maral Edwards
[2023-07-21 10:14] VITALS: BP 133/82; PULSE 73; RESP 18; TEMP 98
== END ==
LOC: WWCWWP 08:42
PROVIDERS: ATTEND Surgery
DX: L76.82 Other postprocedural complications of skin and subcutaneous tissue (principal); Z90.12 Acquired absence of left breast and nipple; Z86.000 Personal history of in-situ neoplasm of breast; Z88.2 Allergy status to sulfonamides; Z88.1 Allergy status to other antibiotic agents

== ENCOUNTER → 2023-08-12 | Outpatient (CLI) | payer OTHER ==
--- NOTE | 2023-08-12 10:24 | P.PN ---
Subjective Progress Note Date: 08/12/23 Principal diagnosis: DCIS left breast status post left mastectomy on 05-18-23 08-12-22 Pablo is a 68 year old female status post a left mastectomy and SNB on 05-18-23. Breast showed DCIS all margins (-). Four nodes all (-). Closest margin 11mm. one section of DCIS measured 14 mm, and a second measured 3 mm. AUDRA drain was removed on 10240911. She states she does have a recurrent seroma, but it has decreased in its accumulation. She states she does have a recurrent seroma today. She saw medical oncology and started tamoxifen on 06-19-23 she is complaining of sweats which have improved. 06-02-23 130 CC straw colored fluid 06-17-23 seroma aspirated 150 mL of straw-colored fluid 06-25-23 seroma aspirated, 205 mL of straw-colored fluid seroma aspirated 280 cc straw colored fluid with complete resolution of the seroma 07-21-23 seroma aspirated 185 mL of blood-tinged fluid with complete resolution of the seroma 08-12-22 Note medical oncology [id number] reviewed Examination: Incision: Clean and dry Seroma left breast mastectomy site After informed consent aspiration of the seroma in the left chest wall was performed: Area was prepped using alcohol: An 18-gauge needle on a 60 mL syringe was used to aspirate the seroma. There was complete resolution of the seroma. 220 mL of fluid were aspirated. A complete resolution of the seroma Plan: The patient will take tamoxifen as per medical oncology Follow-up here in September Follow up sooner any questions or concerns right breast mammogram in February 2024 CC: Dr. Edwards Additional CC's: Maral Edwards Additional CC's: Maral Edwards
[2023-08-12 10:40] VITALS: BP 131/73; PULSE 81; RESP 17; TEMP 98.1
== END ==
LOC: WWCWWP 09:28
PROVIDERS: ATTEND Surgery
DX: L76.34 Postprocedural seroma of skin and subcutaneous tissue following other procedure (principal); Z90.12 Acquired absence of left breast and nipple; Z88.2 Allergy status to sulfonamides; Z88.0 Allergy status to penicillin

== ENCOUNTER → 2023-09-24 | Outpatient (CLI) | payer OTHER ==
--- NOTE | 2023-09-24 10:12 | P.PN ---
Subjective Progress Note Date: 09/24/23 Principal diagnosis: DCIS left breast 03-19-23 Chief Complaint: DCIS left breast Pablo is a 67 year old white female seen in consultation for Dr. Edwards regarding a biopsy proven left breast DCIS. She underwent a bilateral mammogram on 01-18-23. This showed a large area 10 by 4 cm in the left breast in the UOQ where biopsy was done and + for DCIS, no lesions of concern in the right breast. A MRI done on 02-25-23 confirmed the findings of diffuse nonmass enhancement in the left bresat without definitive correlation of location with the calcification on mammogram. No lesions of concern noted in the right breast. Patient does not feel any lumps masses or nodules of concern in either breast. Patient has not had any recent trauma or infection in either breast. Of significance is the fact that the patient underwent a left breast lumpectomy in 2009 at [facility]. It was done by DR. Apple. He underwent [address] Todd. She did not have any chemo or hormonal therapy. She was told it was stage 0. She is uncertain as to the size. [place] [id number]. The recommendation was for left mastectomy with a sentinel node biopsy possible axillary node dissection. Additionally it was recommended she have genetic testing performed. 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 The patient would like to have a bilateral mastectomy if she carries a genetic mutation putting her at increased risk for cancer. She does not carry the mutation she will have a left mastectomy and sentinel node possible axillary node dissection. The patient is aware. We have discussed reconstruction and at this time the patient is not interested in pursuing this. She has declined seeing plastic surgery. Note 04-30-[address] Collins reviewed 09-24-23 patient status post left mastectomy and SNB on 05-18-23; DCIS all margis (-), four nodes all (-) She had a seroma aspirated post op at least 6 times; last drained 08-12-[address] Collins 07-28-24 reviewed, patient on tamoxifen tolerating this without difficulty due for a right breast mammogram in January 2024 States that the left chest wall is again swollen but it is nontender for her. Caffiene: 1/2 cups coffee/day 1 pepsi/day nicotine: none chocolate:occasional BCP: 3 months hormones: none Family history: sister: from colon cancer father: thyroid cancer Hormonal history: Menarche: 10 , breat fed: no, age at first : 27 menopause: total hysterectomy in her 50's heavy bleeding Surgical history: Total abdominal hysterectomy Cholecystectomy Colonoscopy Left breast lumpectomy and sentinel node biopsy Medical History: daibetic HTN high cholesterol Bilateral knee/[id number] takes a baby aspirin Social history: Nicotine: Negative Alcohol: Negative Drugs:none - Constitutional Constitutional: Reports sweats - EENT Eyes: denies blurred vision, denies pain Ears: deny: decreased hearing, tinnitus Ears, nose, mouth and throat: Denies headache, Denies sore throat - Breasts Breasts: bilateral: as per HPI - Cardiovascular Cardiovascular: Denies chest pain, Denies shortness of breath - Respiratory Respiratory: Denies cough - Gastrointestinal Gastrointestinal: Denies abdominal pain, Denies diarrhea, Denies nausea, Denies vomiting - Genitourinary (Female) Genitourinary: Reports kidney stones, Denies dysuria, Denies hematuria - Menstruation Menstruation: Reports post hysterectomy - Musculoskeletal Musculoskeletal: Reports as per HPI, Denies myalgias - Integumentary Integumentary: Denies pruritus, Denies rash - Neurological Neurological: Denies numbness, Denies weakness - Psychiatric Psychiatric: Denies anxiety, Denies depression - Endocrine Endocrine: Denies fatigue, Denies weight change - Hematologic/Lymphatic Comment: none - Allergic/Immunologic Allergic/Immunologic: Reports seasonal allergies Past Medical History Past Medical History: Diabetes Mellitus, Hyperlipidemia, Hypertension History of Any Multi-Drug Resistant Organisms: None Reported Past Surgical History: Cholecystectomy, Hysterectomy Past Anesthesia/Blood Transfusion Reactions: No Reported Reaction Past Psychological History: No Psychological Hx Reported Smoking Status: Never smoker Past Alcohol Use History: None Reported Past Drug Use History: None Reported Medications and Allergies Home Medications Medication Instructions Recorded Confirmed Type Aspirin EC [Ecotrin Low Dose] 81 mg PO DAILY 11/17/21 03/19/23 History Atorvastatin [Lipitor] 80 mg PO HS 11/17/21 03/19/23 History Cholecalciferol [Vitamin D3 (25 25 mcg PO DAILY 11/17/21 03/19/23 History Mcg = 1000 Iu)] Empagliflozin [Jardiance] 25 mg PO DAILY 11/17/21 03/19/23 History Isosorbide Mononitrate ER [Imdur] 30 mg PO DAILY 11/17/21 03/19/23 History Meclizine [Antivert] 25 mg PO DAILY PRN 11/17/21 03/19/23 History Metoprolol Tartrate [Lopressor] 25 mg PO BID 11/17/21 03/19/23 History Naproxen Sodium [Aleve] 440 mg PO BID 11/17/21 03/19/23 History Potassium Citrate [Urocit-K] 10 meq PO BID 11/17/21 03/19/23 History hydroCHLOROthiazide 50 mg PO DAILY 11/17/21 03/19/23 History lisinopriL [Zestril] 20 mg PO BID 11/17/21 03/19/23 History sitaGLIPtin PHOS/metFORMIN HCL 1 tab PO BID 11/17/21 03/19/23 History [Janumet 50-1,000 mg Tablet] Semaglutide [Rybelsus] 14 mg PO DAILY 03/19/23 03/19/23 History Allergies Allergy/AdvReac Type Severity Reaction Status Date / Time sulfamethoxazole AdvReac Abdominal Verified 03/19/23 11:51 [From Bactrim] Pain trimethoprim [From Bactrim] AdvReac Abdominal Verified 03/19/23 11:51 Pain Objective - Vital Signs Vital signs: Intake & Output 09/23/23 09/24/23 09/24/23 18:59 06:59 18:59 Weight 109.769 kg - Constitutional General appearance: Present: cooperative - EENT Eyes: Present: EOMI ENT: Present: hearing grossly normal - Neck Neck: Present: normal ROM - Respiratory Respiratory: bilateral: CTA - Cardiovascular Heart sounds: normal: S1, S2 - Integumentary Integumentary: Present: normal turgor - Musculoskeletal Musculoskeletal: Present: gait normal - Psychiatric Psychiatric: Present: A&O x's 3, appropriate affect, intact judgment & insight - Additional findings Additional findings: Breast Exam: BRA: 42C Inspection: right breast grade 3 ptosis Palpation: Right breast: multi-Positional exam fibrocystic changes no dominant masses or nodules of concern Right axilla: No adenopathy of concern Left breast: left chest wall well healed; fullness at the incision site consistent with a seroma Left axilla: No adenopathy of concern Assessment and Plan Assessment: Impression: Patient's status post left breast mastectomy for DCIS on 05-18-2023, she has had recurrent seromas at that site. No evidence of recurrent cancer Patient on tamoxifen Probable seroma left chest wall Plan: Aspiration seroma Right breast mammogram in January with appointment at that time Patient to follow-up sooner any questions or concerns CC: Dr. Edwards
[2023-09-24 10:25] VITALS: BP 132/82; PULSE 74; RESP 16; TEMP 98.1
== END ==
LOC: WWCWWP 09:41
PROVIDERS: ATTEND Surgery
DX: N64.89 Other specified disorders of breast (principal); L76.33 Postprocedural seroma of skin and subcutaneous tissue following a dermatologic procedure; E11.9 Type 2 diabetes mellitus without complications; E78.00 Pure hypercholesterolemia, unspecified; I10 Essential (primary) hypertension; Z85.3 Personal history of malignant neoplasm of breast; Z90.12 Acquired absence of left breast and nipple; Z79.84 Long term (current) use of oral hypoglycemic drugs; Z88.2 Allergy status to sulfonamides; Z88.1 Allergy status to other antibiotic agents; Z90.49 Acquired absence of other specified parts of digestive tract; Z79.899 Other long term (current) drug therapy; Z79.85 Long-term (current) use of injectable non-insulin antidiabetic drugs; Z79.82 Long term (current) use of aspirin

== ENCOUNTER → 2023-10-29 | Outpatient (CLI) | payer MEDICARE, BC ==
--- NOTE | 2023-10-29 09:19 | P.PN ---
Subjective Progress Note Date: 10/29/23 Principal diagnosis: Seroma left chest wall follow up Aspiration of seroma: Following informed consent the area of concern in the left breast was prepped using alcohol. An 18-gauge needle and a 60 alternating with 20 cc syringe was used to aspirate 310 cc of serous fluid. The fluid was brown/yellow in nature. There appeared to be complete resolution of the seroma. The patient tolerated the procedure in stable condition. The patient will follow-up in 1 month The patient will follow-up sooner any questions or concerns Original Note: Subjective Progress Note Date: 09/24/23 Principal diagnosis: DCIS left breast 03-19-23 Chief Complaint: DCIS left breast Pablo is a 67 year old white female seen in consultation for Dr. Edwards regarding a biopsy proven left breast DCIS. She underwent a bilateral mammogram on 01-18-23. This showed a large area 10 by 4 cm in the left breast in the UOQ where biopsy was done and + for DCIS, no lesions of concern in the right breast. A MRI done on 02-25-23 confirmed the findings of diffuse nonmass enhancement in the left bresat without definitive correlation of location with the calcific ation on mammogram. No lesions of concern noted in the right breast. Patient does not feel any lumps masses or nodules of concern in either breast. Patient has not had any recent trauma or infection in either breast. Of significance is the fact that the patient underwent a left breast lumpectomy in 2009 at [facility]. It was done by DR. Apple. He underwent [address] Todd. She did not have any chemo or hormonal therapy. She was told it was stage 0. She is uncertain as to the size. [place] [id number]. The recommendation was for left mastectomy with a sentinel node biopsy possible axillary node dissection. Additionally it was recommended she have genetic testing performed. 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 The patient would like to have a bilateral mastectomy if she carries a genetic mutation putting her at increased risk for cancer. She does not carry the mutation she will have a left mastectomy and sentinel node possible axillary node dissection. The patient is aware. We have discussed reconstruction and at this time the patient is not interested in pursuing this. She has declined seeing plastic surgery. Note 04-30-[address] Collins reviewed 09-24-23 patient status post left mastectomy and SNB on 05-18-23; DCIS all margis (-), four nodes all (-) She had a seroma aspirated post op at least 6 times; last drained 08-12-[address] Collins 07-28-24 reviewed, patient on tamoxifen tolerating this without difficulty due for a right breast mammogram in January 2024 States that the left chest wall is again swollen but it is nontender for her. 10-29-23 Pablo is a 68-year-old white female status post left mastectomy and sentinel node biopsy on 05-18-2023. DCIS was present all margins were negative, 4 nodes were removed all were negative. She had a seroma aspirated postop multiple times. This was last drained on . The patient returns today to evaluate possible seroma recurrence in the left chest wall. At this time she has not increased swelling. On her last visit a seroma was drained for approximately 300 cc. Caffiene: 1/2 cups coffee/day 1 pepsi/day nicotine: none chocolate:occasional BCP: 3 months hormones: none Family history: sister: from colon cancer father: thyroid cancer Hormonal history: Menarche: 10 , breat fed: no, age at first : 27 menopause: total hysterectomy in her 50's heavy bleeding Surgical history: Total abdominal hysterectomy Cholecystectomy Colonoscopy Left breast lumpectomy and sentinel node biopsy Medical History: daibetic HTN high cholesterol Bilateral knee/jvww-zs-pvkz takes a baby aspirin Social history: Nicotine: Negative Alcohol: Negative Drugs:none Objective - Vital Signs Vital signs: Intake & Output 10/28/23 10/29/23 10/29/23 18:59 06:59 18:59 Weight 108.862 kg - Constitutional General appearance: Present: cooperative - EENT Eyes: Present: EOMI ENT: Present: hearing grossly normal - Respiratory Respiratory: bilateral: CTA - Cardiovascular Heart sounds: normal: S1, S2 - Integumentary Integumentary Comment(s): no evidence of seroma left chest wall on today's examination no evidence of recurrent cancer Assessment and Plan Assessment: Impression: Patient's status post left breast mastectomy for DCIS on 05-18-2023, she had multiple recurrent seromas at that site No evidence of recurrent cancer Patient on tamoxifen No evidence of seroma on today's examination Plan: Patient due for right breast mammogram in January with appointment at that time Patient will follow-up sooner any questions or concerns CC: Dr. Edwards
[2023-10-29 09:33] VITALS: BP 141/83; PULSE 74; RESP 17; TEMP 97.8
== END ==
LOC: WWCWWP 08:33
PROVIDERS: ATTEND Surgery
DX: Z90.12 Acquired absence of left breast and nipple (principal); Z79.810 Long term (current) use of selective estrogen receptor modulators (SERMs); Z88.2 Allergy status to sulfonamides; Z91.048 Other nonmedicinal substance allergy status; Z79.82 Long term (current) use of aspirin

== ENCOUNTER → 2024-01-25 | Outpatient (CLI) | payer MEDICARE, BC ==
--- NOTE | 2024-01-25 10:12 | MM ---
Reason for Exam: Hx of breast cancer, mastectomy. Last screening mammogram was performed 12 month(s) ago. Patient History: Menarche at age 11. First Full-Term at age 27. Hysterectomy at age 45. Postmenopausal. Breast cancer, left, age 55. Breast cancer, left, age 54. 05/18/2010, Malignant Mastectomy on the left side. 2009, Lumpectomy on the Left side. 2009, Radiation Therapy on the left side. Prior Study Comparison: 01/07/2022 Bilateral Diagnostic Mammogram, [facility]. 01/18/2023 Bilateral MG 3D screening mammo w/cad, [facility]. 01/21/2023 Left MG 3D work up w/cad , [facility]. Tissue Density: Right: The breasts are heterogeneously dense, which may obscure small masses. Findings: Analyzed By CAD. Pattern appears stable. There are scattered benign-appearing round punctate calcifications. No significant interval change is evident. No suspicious groups of microcalcifications, spiculated or lobular masses, architectural distortion or other secondary signs of malignancy are mammographically apparent. Overall Assessment: Benign, BI-RAD 2 Management: Diagnostic Mammogram of the right breast in 1 year. A negative mammogram report should not preclude additional follow up of suspicious palpable abnormalities. Patient should continue monthly self breast exam. A clinical breast exam by your physician is recommended on an annual basis and results should be correlated with mammographic findings. Note on Cherie scores and lifetime risk: 1. A Cherie score greater than 3% is considered moderate risk. If this is the case, consider specialist referral to assess eligibility for a risk reducing agent. 2. If overall lifetime risk for the development of breast cancer is 20% or higher, the patient may qualify for future screening with alternating mammogram and breast MRI. Electronically signed and approved by: Erasmo Henry D.O. Radiologis
== END | disposition home or self-care (01) ==
LOC: RADMAMWWP 09:29
PROVIDERS: ATTEND Surgery
DX: R92.331 Mammographic heterogeneous density, right breast (principal); R92.1 Mammographic calcification found on diagnostic imaging of breast; Z85.3 Personal history of malignant neoplasm of breast; Z78.0 Asymptomatic menopausal state; Z90.12 Acquired absence of left breast and nipple
CPT/HCPCS: 77065; G0279; 77061

== ENCOUNTER → 2024-02-07 | Outpatient (CLI) | payer MEDICARE, BC ==
[2024-02-07 08:42] VITALS: BP 131/74; PULSE 74; RESP 16; TEMP 98.2
--- NOTE | 2024-02-07 08:45 | P.PN ---
Subjective Progress Note Date: 02/07/24 Principal diagnosis: s/p left mastectomy DCIS Subjective Progress Note Date: 09/24/23 Principal diagnosis: DCIS left breast 03-19-23 Chief Complaint: DCIS left breast Pablo is a 67 year old white female seen in consultation for Dr. Edwards regarding a biopsy proven left breast DCIS. She underwent a bilateral mammogram on 01-18-23. This showed a large area 10 by 4 cm in the left breast in the UOQ where biopsy was done and + for DCIS, no lesions of concern in the right breast. A MRI done on 02-25-23 confirmed the findings of diffuse nonmass enhancement in the left bresat without definitive correlation of location with the calcification on mammogram. No lesions of concern noted in the right breast. Patient does not feel any lumps masses or nodules of concern in either breast. Patient has not had any recent trauma or infection in either breast. Of significance is the fact that the patient underwent a left breast lumpectomy in 2009 at [facility]. It was done by DR. Apple. He underwent [address] Todd. She did not have any chemo or hormonal therapy. She was told it was stage 0. She is uncertain as to the size. [place] [id number]. The recommendation was for left mastectomy with a sentinel node biopsy possible axillary node dissection. Additionally it was recommended she have genetic testing performed. 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 The patient would like to have a bilateral mastectomy if she carries a genetic mutation putting her at increased risk for cancer. She does not carry the mutation she will have a left mastectomy and sentinel node possible axillary node dissection. The patient is aware. We have discussed reconstruction and at this time the patient is not interested in pursuing this. She has declined seeing plastic surgery. Note 04-30-[address] Collins reviewed 09-24-23 patient status post left mastectomy and SNB on 05-18-23; DCIS all margis (-), four nodes all (-) She had a seroma aspirated post op at least 6 times; last drained 08-12-[address] Collins 07-28-24 reviewed, patient on tamoxifen tolerating this without difficulty due for a right breast mammogram in January 2024 States that the left chest wall is again swollen but it is nontender for her. 10-29-23 Pablo is a 68-year-old white female status post left mastectomy and sentinel node biopsy on 05-18-2023. DCIS was present all margins were negative, 4 nodes were removed all were negative. She had a seroma aspirated postop multiple times. This was last drained on . The patient returns today to evaluate possible seroma recurrence in the left chest wall. At this time she has not increased swelling. On her last visit a seroma was drained for approximately 300 cc. 02-07-24 right breast mammogram on 01-25-24 DILLON Voss personally reviewed, and interpreted note 11-29-23 DR. collins reviewed, tolerating tamoxifen Caffiene: 1/2 cups coffee/day 1 pepsi/day nicotine: none chocolate:occasional BCP: 3 months hormones: none Family history: sister: from colon cancer father: thyroid cancer Hormonal history: Menarche: 10 , breat fed: no, age at first : 27 menopause: total hysterectomy in her 50's heavy bleeding Surgical history: Total abdominal hysterectomy Cholecystectomy Colonoscopy Left breast lumpectomy and sentinel node biopsy Medical History: daibetic HTN high cholesterol Bilateral knee/vufy-sb-vmeg takes a baby aspirin Social history: Nicotine: Negative Alcohol: Negative Drugs:none Objective - Constitutional General appearance: Present: cooperative - EENT Eyes: Present: EOMI ENT: Present: hearing grossly normal - Neck Neck: Present: normal ROM - Respiratory Respiratory: bilateral: CTA - Cardiovascular Heart sounds: normal: S1, S2 - Integumentary Integumentary: Present: normal turgor - Psychiatric Psychiatric: Present: A&O x's 3, appropriate affect, intact judgment & insight - Additional findings Additional findings: Breast Exam: inspection: status post left mastectomy; under the right breast there is a fungal infection palpation: Right breast: Multi positional exam no dominant masses or nodules of concern for infection under the right breast Right axilla: No adenopathy of concern Left breast: Well-healed scar from mastectomy, no evidence of any lumps masses or nodules of concern on the chest wall Left axilla: No adenopathy of concern Assessment and Plan Assessment: Impression: Patient's status post left breast mastectomy for DCIS on 05-18-2023, she had multiple recurrent seromas at that site; at this time No evidence of recurrent cancer Patient on tamoxifen Plan: Patient due for right breast mammogram in January 2025 Patient will follow-up sooner any questions or concerns nystatin under right breast CC: Dr. Edwards
== END ==
LOC: WWCWWP 08:18
PROVIDERS: ATTEND Surgery
DX: R92.1 Mammographic calcification found on diagnostic imaging of breast (principal); L76.33 Postprocedural seroma of skin and subcutaneous tissue following a dermatologic procedure; Z85.3 Personal history of malignant neoplasm of breast; Z90.12 Acquired absence of left breast and nipple; Z88.2 Allergy status to sulfonamides; Z88.1 Allergy status to other antibiotic agents

== ENCOUNTER → 2024-02-14 | Outpatient (CLI) | payer MEDICARE, BC ==
--- NOTE | 2024-02-14 13:03 | XR ---
EXAMINATION TYPE: XR KUB DATE OF EXAM: 02/14/2024 COMPARISON: 10/23/2021 INDICATION: History of stones TECHNIQUE: Abdomen is examined in the frontal projection. FINDINGS: There is a normal bowel gas pattern. Psoas margins are normal. No organomegaly is present. There is a 0.4 cm calcification overlying the inferior pole right kidney. Cholecystectomy clips are p resent. Splenic artery calcification is present. Phleboliths within the left hemipelvis. IMPRESSION: 1. 0.4 cm inferior pole right renal calcification
== END | disposition home or self-care (01) ==
LOC: RADXRYALE 11:07
PROVIDERS: ATTEND Urology
DX: N20.0 Calculus of kidney (principal)
CPT/HCPCS: 74018

== ENCOUNTER → 2024-08-18 | Outpatient (CLI) | payer MEDICARE, BC ==
[2024-08-18 11:11] VITALS: BP 131/74; PULSE 72; RESP 17; TEMP 97.9
--- NOTE | 2024-08-18 11:32 | P.PN ---
Subjective Progress Note Date: 08/18/24 Subjective Principal diagnosis: s/p left mastectomy DCIS Pablo had a prior history of DCIS of the left breast treated with lumpectomy and radiation in 2009. She had a regular screening mammogram in 01-18-2023. This showed new linear calcification in the upper outer quadrant of the left breast. Additional diagnostic imaging showed an area which was 9.1 x 7.5 x 3.4 cm of concern. The patient had an MRI which revealed diffuse non-mass enhancement without definite correlation of the abnormality noted on the mammogram. Multifocal stereo biopsy was performed on 03-11-2023 and Roberto Jasmine. 2 sites were biopsied with maximum distance between the markers of 6.3 cm. Both sites showed DCIS grade 2. The patient therefore underwent a mastectomy on the left side with sentinel node biopsy. She is status post left mastectomy and sentinel node biopsy on 05-18-2023. DCIS was present; all margins were negative, 4 nodes were removed all were negative. She had a seroma aspirated postop multiple times. right breast mammogram on 01-25-24 BIR[facility] 2 personally reviewed, and interpreted note 04-03-24 DR. Collins reviewed, tolerating tamoxifen genetic testing VUS She is not complaining of any new lumps masses or nodules of concern in her right breast or her left chest wall. She is not complaining of any fluid collection at the mastectomy site. Caffiene: 1/2 cups coffee/day 1 pepsi/day nicotine: none chocolate:occasional BCP: 3 months hormones: none Family history: sister: from colon cancer father: thyroid cancer Hormonal history: Menarche: 10 , breat fed: no, age at first : 27 menopause: total hysterectomy in her 50's heavy bleeding Surgical history: Total abdominal hysterectomy Cholecystectomy Colonoscopy Left breast lumpectomy and sentinel node biopsy colonoscopy done July 2024, no lesions of concern Medical History: daibetic HTN high cholesterol Bilateral knee/dekk-vu-szxj takes a baby aspirin Social history: Nicotine: Negative Alcohol: Negative Drugs:none Objective - Vital Signs Vital signs: Vital Signs Temp 97.9 F 08/18/24 11:08 Pulse 72 08/18/24 11:08 Resp 17 08/18/24 11:08 BP 131/74 08/18/24 11:08 Pulse Ox 93 L 08/18/24 11:08 FiO2 Intake & Output 08/17/24 08/18/24 08/18/24 18:59 06:59 18:59 Weight 113.398 kg - Constitutional General appearance: Present: cooperative - EENT Eyes: Present: EOMI ENT: Present: hearing grossly normal - Neck Neck: Present: normal ROM - Respiratory Respiratory: bilateral: CTA - Cardiovascular Heart sounds: normal: S1, S2 - Integumentary Integumentary: Present: normal turgor - Musculoskeletal Musculoskeletal: Present: gait normal - Psychiatric Psychiatric: Present: A&O x's 3, appropriate affect, intact judgment & insight - Additional findings Additional findings: Breast Exam: inspection: status post left mastectomy; under the right breast there was a fungal infection which has resolved palpation: Right breast: Multi positional exam no dominant masses or nodules of concern resolved fungal infection under the right breast Right axilla: No adenopathy of concern Left breast: Well-healed scar from mastectomy, no evidence of any lumps masses or nodules of concern on the chest wall Left axilla: No adenopathy of concern Assessment and Plan Assessment: Impression: Patient's status post left breast mastectomy for DCIS on 05-18-2023, she had multiple recurrent seromas at that site; at this time no seroma No evidence of recurrent cancer Patient on tamoxifen Plan: Patient due for right breast mammogram in January 2025, to follow up then Patient will follow-up sooner any questions or concerns nystatin under right breast as needed CC: Dr. Edwards
== END ==
LOC: WWCWWP 10:01
PROVIDERS: ATTEND Surgery
DX: Z90.12 Acquired absence of left breast and nipple (principal); Z88.1 Allergy status to other antibiotic agents; Z88.2 Allergy status to sulfonamides

== ENCOUNTER → 2025-01-23 | Outpatient (CLI) | payer MEDICARE, BC ==
--- NOTE | 2025-01-23 10:53 | MM ---
Reason for Exam: Follow-up at short interval from prior study. Last screening mammogram was performed 12 month(s) ago. Patient History: Menarche at age 11. First Full-Term at age 27. Hysterectomy at age 45. Postmenopausal. Breast cancer, left, age 55. Breast cancer, left, age 54. 05/18/2010, Malignant Mastectomy on the left side. 2009, Lumpectomy on the Left side. 2009, Radiation Therapy on the left side. Prior Study Comparison: 01/18/2023 Bilateral MG 3D screening mammo w/cad, [facility]. 01/21/2023 Left MG 3D work up w/cad LT, [facility]. 01/25/2024 Right MG 3D diag mammo w/cad RT, [facility]. Tissue Density: Right: The breasts are heterogeneously dense, which may obscure small masses. Findings: Analyzed By CAD. Redemonstrated scattered benign round and punctate calcifications. Some grouped dystrophic calcifications upper outer quadrant remain unchanged. No significant change from prior exams. Overall Assessment: Benign, BI-RAD 2 Management: Diagnostic Mammogram of the right breast in 1 year. Results were given to the patient verbally at the time of exam. Patient should continue monthly self-breast exams. A clinical breast exam by your physician is recommended on an annual basis. This exam should not preclude additional follow-up of suspicious palpable abnormalities. [facility], , 01/23/2025 10:49 AM. Electronically signed and approved by: Krys Pantoja M.D. Radiologist
== END | disposition home or self-care (01) ==
LOC: RADMAMWWP 10:33
PROVIDERS: ATTEND Surgery
DX: C50.912 Malignant neoplasm of unspecified site of left female breast (principal); R92.331 Mammographic heterogeneous density, right breast; Z85.3 Personal history of malignant neoplasm of breast; Z78.0 Asymptomatic menopausal state
CPT/HCPCS: 77065; G0279; 77061

== ENCOUNTER → 2025-02-07 | Outpatient (CLI) | payer MEDICARE, BC ==
[2025-02-07 15:21] VITALS: BP 134/82; PULSE 84; RESP 17; TEMP 98.4
--- NOTE | 2025-02-07 15:32 | P.PN ---
Subjective Progress Note Date: 02/07/25 Principal diagnosis: DCIS left breast 2009 and recur in 202202-07-25 Subjective Principal diagnosis: s/p left mastectomy DCIS Pablo had a prior history of DCIS of the left breast treated with lumpectomy and radiation in 2009. She had a regular screening mammogram in 01-18-2023. This showed new linear calcification in the upper outer quadrant of the left breast. Additional diagnostic imaging showed an area which was 9.1 x 7.5 x 3.4 cm of concern. The patient had an MRI which revealed diffuse non-mass enhancement without definite correlation of the abnormality noted on the mammogram. Question of multifocal deisease seen on a mammogram in 2022; stereo biopsy was performed on 03-11-2023 and Roberto Jasmine. 2 sites were biopsied with maximum distance between the markers of 6.3 cm. Both sites showed DCIS grade 2. The patient therefore underwent a mastectomy on the left side with sentinel node biopsy. She is status post left mastectomy and sentinel node biopsy on 05-18-2023. DCIS was present; all margins were negative, 4 nodes were removed all were negative. She had a seroma aspirated postop multiple times. right breast mammogram on 01-23-25 BIR[facility] 2 personally reviewed, and interpreted note 04-03-24 DR. Collins reviewed last visit, tolerating tamoxifen genetic testing VUS She is not complaining of any new lumps masses or nodules of concern in her right breast or her left chest wall. She is not complaining of any fluid collection at the mastectomy site. She has a rash on her upper arms bilaterally which she states is not sunburn but comes intermittently. Caffiene: 1/2 cups coffee/day 1 pepsi/day nicotine: none chocolate:occasional BCP: 3 months hormones: none Family history: sister: from colon cancer father: thyroid cancer Hormonal history: Menarche: 10 , breat fed: no, age at first : 27 menopause: total hysterectomy in her 50's heavy bleeding Surgical history: Total abdominal hysterectomy Cholecystectomy Colonoscopy Left breast lumpectomy and sentinel node biopsy colonoscopy done July 2024, no lesions of concern Medical History: daibetic HTN high cholesterol Bilateral knee/wlml-nn-oqgb takes a baby aspirin Social history: Nicotine: Negative Alcohol: Negative Drugs:none Objective - Vital Signs Vital signs: Vital Signs Temp 98.4 F 07/02/25 15:17 Pulse 84 02/07/25 15:17 Resp 17 02/07/25 15:17 BP 134/82 02/07/25 15:17 Pulse Ox 94 L 02/07/25 15:17 FiO2 Intake & Output 02/06/25 02/07/25 02/07/25 18:59 06:59 18:59 Weight 113.398 kg - Constitutional General appearance: Present: cooperative - EENT Eyes: Present: EOMI ENT: Present: hearing grossly normal - Neck Neck: Present: normal ROM - Respiratory Respiratory: bilateral: CTA - Cardiovascular Rhythm: regular Heart sounds: normal: S1, S2 - Integumentary Integumentary: Present: normal turgor - Musculoskeletal Musculoskeletal: Present: gait normal - Psychiatric Psychiatric: Present: A&O x's 3, appropriate affect, intact judgment & insight - Additional findings Additional findings: Breast Exam: inspection: status post left mastectomy; erythematous rash bilateral upper arms Fungal infection under right breast palpation: Right breast: Multi positional exam no dominant masses or nodules of concern fungal infection under the right breast Right axilla: No adenopathy of concern Left breast: Well-healed scar from mastectomy, no evidence of any lumps masses or nodules of concern on the chest wall Left axilla: No adenopathy of concern Assessment and Plan Assessment: Impression: Patient's status post left breast mastectomy for DCIS on 05-18-2023, she had multiple recurrent seromas at that site; at this time no seroma No evidence of recurrent cancer Patient on tamoxifen right breast mamogram on 01-23-25 BIRAD 2 Plan: follow up in 6 months Repeat right breast mammogram in January 2026 with appointment at that time Patient will follow-up sooner any questions or concerns nystatin under right breast as needed for fungal infection CC: Dr. Edwards
== END ==
LOC: WWCWWP 14:49
PROVIDERS: ATTEND Surgery
DX: Z12.31 Encounter for screening mammogram for malignant neoplasm of breast (principal); D05.12 Intraductal carcinoma in situ of left breast; Z90.49 Acquired absence of other specified parts of digestive tract; Z79.810 Long term (current) use of selective estrogen receptor modulators (SERMs)